=== PATIENT | female | born 1995 | race Caucasian/White ===

== ENCOUNTER 2024-11-22 13:03 | Outpatient (AMB) | payer OTHER, SELFPAY ==
--- NOTE | 2024-11-22 13:06 | MHC.PC.OV ---
Vital Signs 11/22/24 13:07 Height 5 ft 4 in Weight 158 lb 4 oz BMI 27.2 BP 100/66 Blood Pressure Location Lt brachial Position Sitting Pulse 73 Pulse Source Pulse Oximeter Pulse Oximetry (%) 99 Oxygen Delivery Method Room Air Intake Visit Reasons: establish care Customer Experience Specialist Required: No Accompanied by: Self / Same As Patient Allergies No Known Allergies Allergy (Verified 11/22/24 13:23) Medication List - Last Reconciled 11/22/24 by Dave Anaya PA-C No Known Home Meds Tobacco use date assessed: 11/22/24 Dental Screening Dental Screen Date: 11/22/24 Did you have a dental visit in the last 12 months?: Yes Did you have a dental problem in the last 6 months where you did not have access to dental care?: No Was dental information given to patient?: Patient has dentist HPI establish care HPI Details Patient is a 29-year-old female here today for an establish care visit. Patient has a past medical history significant for PCOS, iron-deficiency and recent history of intermittent right upper extremity pain and swelling Concern--> chronic right arm pain. This pain began approximately six to eight months ago, in April or May, and presents with radiating symptoms and bulging veins. After an evaluation at the emergency room earlier this year, the incident initially indicated a possible cerebrovascular accident; however, migraines were attributed to her control usage. An MRI of the head was performed, revealing no significant findings. Following a visit to urgent care, cervical strain was diagnosed, leading to steroid treatment that showed partial efficacy. Grades 1 Thru 6 Home Teacher: Sees Geovanna CHIRINOS, will like to transfer her care to [facility] teacher Vaccines: Up-to-date with flu vaccine, tetanus vaccine and COVID vaccines PFSH Family History (Updated 11/22/24 @ 13:24 by Dave Anaya PA-C) Father CVA (cerebral vascular accident) Other Diabetes Hypertension Social History (Updated 11/22/24 @ 13:24 by Dave Anaya PA-C) Housing: House Alcohol intake: current Alcohol intake frequency: holidays/special occasions only Patient Tobacco Use Status: Never used Tobacco e-Cigarette/Vaping Use: Never Used service: No Current occupational status: employed 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 1. Little interest or pleasure in doing things: not at all 2. Feeling down, depressed, or hopeless: not at all 3. Trouble falling or staying asleep, or sleeping too much: not at all 4. Feeling tired or having little energy: not at all 5. Poor appetite or overeating: not at all 6. Feeling bad about yourself - or that you are a failure or have let yourself or your family down: not at all 7. Trouble concentrating on things, such as reading the newspaper or watching television: not at all 8. Moving or speaking so slowly that other people could have noticed. Or the opposite - being so fidgety or restless that you have been moving around a lot more than usual: not at all 9. Thoughts that you would be better off or of hurting yourself in some way: not at all Total score: 0 Depression Screening Interpretation: Negative Depression Screening Done: Yes 58364 - PHQ-9 Billing: Yes Source: Developed by Drs. Damon Escobedo, Mindi Taylor, Bradley Trujillo and colleagues, with an educational cynthia from [employer]. Thrive Questionnaire Date Thrive assessed: 11/22/24 I am a: Patient What is your living situation today?: I have a steady place to live Within the past 12 months, did the food you bought not last and you didn't have the money to get more?: Never true Within the past 12 months, did you worry whether your food would run out before you got money to buy more?: Never true Do you have trouble paying for medicines?: No Do you have trouble getting transportation to medical appointments?: No Do you have trouble paying your heating and electricity bill?: No Do you have trouble taking care of your child, family member or friend?: No Do you have trouble with day-to-day activities such as bathing, preparing meals, shopping, managing finances, etc.?: No Are you currently unemployed and looking for a job?: No Are you interested in more education?: No Please select the resources that you would like help with: None Currently or been in a relationship where the following occur: No concerns reported THRIVE Score: 0 AUDIT C Alcohol Use Questionnaire (AUDIT-C) 1. How often do you have a drink containing alcohol?: 2-4 times a month 2. How many drinks containing alcohol do you have on a typical day when you are drinking?: 3 or 4 3. How often do you have six or more drinks on one occasion?: Never Total Score: 3 PIYUSH-7 AMB Questionnaire PIYUSH-7 Date PIYUSH - 7 assessed: 11/22/24 Feeling nervous, anxious, or on edge: 0 = Not at all Not being able to stop or control worryin = Not at all Worrying too much about different things: 0 = Not at all Trouble relaxin = Not at all Being so restless that it is hard to sit still: 0 = Not at all Becoming easily annoyed or irritable: 0 = Not at all Feeling afraid as if something awful might happen: 0 = Not at all Total PIYUSH-7 score (0-4 normal; 5-9 mild; 10-14 moderate; 15-21 severe): 0 Source: Developed by Drs. Damon Escobedo, Mindi Taylor, Bradley Trujillo and colleagues, with an educational cynthia from [employer]. PIYUSH-7 Assessment Billing PIYUSH-7 Assessment Tool: PIYUSH-7 Assessment 68962 Review of Systems Const Denies headache(s) Eyes Denies loss of vision ENT Denies vertigo, Denies dizziness, Denies headache(s) and Denies sore throat Card Denies chest pain, Denies leg edema and Denies lightheadedness Resp Denies cough, Denies hemoptysis and Denies wheezing GI Denies abdominal pain, Denies melena, Denies constipation, Denies diarrhea and Denies vomiting Denies urinary frequency, Denies dysuria and Denies urinary urgency Musc Denies arthralgias, Denies joint swelling, Denies numbness and Denies tingling Neuro Denies Abnormal speech present, Denies behavioral changes, Denies vertigo, Denies dizziness, Denies headache(s), Denies loss of vision, Denies memory loss, Denies numbness and Denies tingling Psych Denies anxiety, Denies behavioral changes, Denies depression, Denies memory loss and Denies panic attacks Calixto/Lymph Denies easy bleeding and Denies easy bruising Aller/Immun Denies wheezing Physical exam (Primary Care) Vital Signs: Last Vital Signs Pulse 73 11/22/24 13:07 BP 100/66 11/22/24 13:07 Pulse Ox 99 11/22/24 13:07 Oxygen Delivery Method Room Air 11/22/24 13:07 BMI result Body Mass Index 27.2 Tobacco/Smoking Status: Tobacco use Status Tobacco use date assessed 11/22/24 11/22/24 13:13 Patient Tobacco Use Status Never used Tobacco 11/22/24 13:13 e-Cigarette/Vaping Use Never Used 11/22/24 13:13 PHQ-9: PHQ-9 Score PHQ-9: Total score 0 11/22/24 13:13 Depression Screening Interpretation: Negative Thrive Assessment: Date of Thrive Assessment Date Thrive assessed 11/22/24 11/22/24 13:13 Currently or been in a relationship where the following occur: No concerns reported Const General: healthy appearing, no acute distress, alert and awake Nutritional Appearance: well nourished Orientation/consciousness: oriented to person, oriented to place and oriented to time HENMT Ears: TM's normal bilaterally General nose exam: Normal nasal mucous membranes and turbinates present Eyes Conjunctivae: conjunctivae normal Sclerae: sclerae normal Pupils: Equal, round and reactive pupils present Neck Neck: Yes no lymphadenopathy and Yes no JVD Thyroid: Thyroid normal Carotids: no bruits Resp Effort & Inspection: normal respiratory effort and not tachypneic Auscultation: no crackles, no rales, no rhonchi and no wheezes Cardio Rate: regular rate Rhythm: regular rhythm Heart sounds: no murmurs and normal S1 and S2 GI Palpation (GI): Soft to palpation, nontender, no hepatomegaly and no splenomegaly Auscultation: normal bowel sounds Skin General skin exam: no rashes or lesions noted and dry skin Neuro General: oriented to person, oriented to place and oriented to time Cranial nerves: Yes Equal, round and reactive pupils present Speech: No Abnormal speech present Gait exam (Neuro): Normal gait present Motor exam (neuro): no tremor noted Extrem Right upper extremity: full ROM Left upper extremity: full ROM Right lower extremity: full ROM; no edema Left lower extremity: full ROM; no edema Psych Mental Status: mental status grossly normal Speech and movement: Normal speech and movement present Affect: normal affect Attitude: cooperative Thought process: Normal thought process present Coding Level of Care Code New Pt Level 4 (32809) Diagnoses Cervical radiculopathy M54.12 Screening for diabetes mellitus (DM) Z13.1 Iron deficiency E61.1 PCOS (polycystic ovarian syndrome) E28.2 Swelling of right upper extremity M79.89 Paresthesia of right upper extremity R20.2 Additional Codes PHQ-9 - 59454 - PHQ-9 Billing: Yes ([id number]) PIYUSH-7 Assessment Billing - PIYUSH-7 Assessment Tool: PIYUSH-7 Assessment 24511 ([id number]) Assessment & Plan Assessment & Plan (1) Cervical radiculopathy: Code(s): M54.12 - Radiculopathy, cervical region Category: Medical Plan: A thorough evaluation has suggested a cervical disc etiology or local nerve involvement. Physical therapy is advised to alleviate the issue. Invasive tests like EMG are considered if no improvement is noted. (2) Screening for diabetes mellitus (DM): Code(s): Z13.1 - Encounter for screening for diabetes mellitus Category: Medical Plan: As per HPI (3) Iron deficiency: Code(s): E61.1 - Iron deficiency Category: Medical Plan: Patient has a history of iron deficiency, will check her iron studies and CBC. (4) PCOS (polycystic ovarian syndrome): Code(s): E28.2 - Polycystic ovarian syndrome Category: Medical Plan: Was followed by Geovanna CHIRINOS, will like to transfer her care to [facility] teacher for continued vocational rehabilitation teacher follow up (5) Swelling of right upper extremity: Code(s): M79.89 - Other specified soft tissue disorders Category: Medical Plan: As above patient does report venous dilation and arm pain on an intermittent basis. Will send for ultrasound to evaluate for a vascular issue in the right upper extremity (6) Paresthesia of right upper extremity: Code(s): R20.2 - Paresthesia of skin Category: Medical Plan: As above Orders: Orders IRON PROFILE Today D50.9 - Iron deficiency anemia, unspecified, E61.1 - Iron deficiency Complete Blood Count no Diff Today E61.1 - Iron deficiency Comprehensive [place]. Panel Fast Today Z13.1 - Encounter for screening for diabetes mellitus US arterial duplex UE RT Today M79.89 - Other specified soft tissue disorders NE electromyogram (EMG) Today R20.2 - Paresthesia of skin NE nerve conduction velocity Today R20.2 - Paresthesia of skin PT Evaluation and Treatment Today M54.12 - Radiculopathy, cervical region Referrals ELECTRIC MOTOR CONTROL ASSEMBLER Referral E28.2 - Polycystic ovarian syndrome
[2024-11-22 13:07] VITALS: BP 100/66; PULSE 73; O2SAT 99; BMI 27.2
--- OUTSIDE RECORDS SUMMARY | 2024-11-22 15:35 | XMS_ITS | Clinical Summary ---
Author Organization [facility] Address [address] [place] [address] Phone Care Team Providers Care Press Feeder Broomcorn Name Role Phone Emma Saini MD Primary Care Provider Unavailabl e Immunizations Immunization Administration Dates Next Due DTP 01/15/1995,1994,1994 DTaP 5 11/09/1999,02/23/1999 HPV, Quadrivalent 05/12/2008,01/08/2008,01/06/20 07 Hep B, ped/adol 1994,1994,1994 Hib (PRP-T) 02/23/1999 IPV 12/10/1997, 8,05/22/1996, 995,01/15/1995,1994,1994 Influenza Split 04/01/2012 MMR 07/18/2010,06/26/1999,04/13/1995 Meningococcal Conj (Menactra) MCV4P 01/08/2008 Tdap 01/05/2007 Family History Relation Name Status Comments Father Alive Father: Alive a nd well Maternal Grandmother Materna l grandmother: Asthma Mother Mother: Migrain es, Asthma Social History Tobacco Use Types Packs/Day Years Used Date Smoking Tobacco: Never Comments:Never smoker Comments Unknown Sex and Gender Information Value Date Recorded Sex Assigned at Not on file Legal Sex Female 4:54 PM EDT Gender Identity Not on file Sexual Orientation Not on file Last Filed Vital Signs Vital Sign Reading Time Taken Comments Blood Pressure 112/75 06/10/2014 12:00 AM EST Pulse 92 06/10/2014 12:00 AM EST Temperature 36.5 ??C (97.7 ??F) 06/10/2014 12:[address] Respiratory Rate - - Oxygen Saturation - - Inhaled Oxygen Concentration - - Weight 93.2 kg (205 lb 6.4 oz) 06/10/2014 12:00 AM EST Height 161.5 cm (5' 3.6 ) 06/10/2014 12:00 AM ES T Body Mass Index 35.7 06/10/2014 12:00 AM EST Plan of Treatment Health Maintenance Due Date Last Done Comments Hepatitis B Vaccines (4 of 4 - 4-dose series) 01/09/1995 1994, 1994, 1994 Varicella Vaccines (1 of 2 - 13+ 2-dose series) 09/04/2016 Influenza Vaccines (#1) 2024 04/23/20 19, 04/23/2017, 07/18/2016, Additional history exists COVID-19 Vaccine ( season) 2024 04/26/2021, 09/24/2020, 09/03/2020 DTaP,Tdap,and Td Vaccines (9 - Td or Tdap) 04/23/2027 04/23/2017, 07/18/2016, 01/05/2007, Additional history exists IPV Vaccines Completed 12/10/1997, 0 10/1997, 05/22/1996, Additional history exists HIB Vaccines Completed 02/23/1999 HPV Vaccines Completed 05/12/2008, 12/26, 01/05/2007 MMR Vaccines Completed 08/07/2016, 06/28, 06/26/1999, Additional history exists Meningococcal Vaccine Aged Out 02/03/2019, 008 No longer eligible based on patient's age to complete this topic Hepatitis A Vaccines Aged Out No long er eligible based on patient's age to complete this topic Men B Vaccine Aged Out No longer elig ible based on patient's age to complete this topic Pneumococcal Vaccine Aged Out No long er eligible based on patient's age to complete this topic Procedures * Due to [place] law, this organization might not be sharing sensitive test results. Procedure Name Priority Date/Time Associated Diagnosis Comments CHLAMYDIA AND GONORRHEA, AMPLIFIED Routine 11/09/2012 1:10 PM EDT from Last 3 Months or Most Recently Relevant to Health Maintenance Results * Due to [place] law, this organization might not be sharing sensitive test results. * Chlamydia and Gonorrhoea, Amplified (11/09/2012 1:10 PM EDT) URINE GC AMP PROBE NEGATIVE [facility] Comment: NO NEISSERIA GONORRHOEAE RNA DETECTED IN THIS PATIENT'S SAMPLE. ? (REFERENCE RANGE/NORMAL VALUE: NOT DETECTED) ? NOTE: THIS TEST USES FORMSTONE FITTER-MEDIATED AMPLIFICATION METHOD TO DETECT rRNA FROM C.TRACHOMATIS AND N.GONORRHOEAE. A NEGATIVE RESULT DOES NOT PRECLUDE INFECTION. THE APTIMA COMBO 2 ASSAY IS NOT INTENDED FOR THE EVALUATION OF SUSPECTED SEXUAL ABUSE OR FOR OTHER MEDICO LEGAL INDICATIONS. THERAPEUTIC FAILURE OR SUCCESS CANNOT BE DETERMINED WITH THE APTIMA COMBO 2 ASSAY SINCE NUCLEIC ACID MAY PERSIST FOLLOWING APPROPRIATE ANTIMICROBIAL THERAPY. IN THE CASE OF A NEGATIVE URINE RESULT, TESTING OF AN ENDOCERVICAL (FEMALE) OR URETHRAL (MALE) SPECIMEN IS RECOMMENDED IF THERE IS HIGH CLINICAL SUSPICION OF INFECTION. URINE CHLAMYDIA AMP PROBE NEGATIVE [facility] Comment: NO CHLAMYDIA TRACHOMATIS RNA DETECTED IN THIS PATIENT'S SAMPLE. ? (REFERENCE RANGE/NORMAL VALUE: NOT DETECTED) 11/09/2012 1:10 PM EDT Narrative [facility] - 11/09/2012 1:10 PM EDT URINE CHLAMYDIA GC AMP PROBE us Chelo Carranza MD LAB MICROBIOLOGY - GENERAL ORDER ANDERSON Final Result [facility] [address] [id number], [place] from Last 3 Months or Most Recently Relevant to Health Maintenance Care Teams Press Feeder Broomcorn Relationship Specialty Start Date End Date Emma Saini MD PCP - General 03/07/17
--- OUTSIDE RECORDS SUMMARY | 2024-11-22 15:35 | XMS_ITS | Encounter Summary ---
Author Organization [facility] Address [address] [place] [address] Phone Care Team Providers Care Chemical Production Machine Operator Name Role Phone Emma Saiin MD Primary Care Provider Unavailabl e Encounter Details Date Type Department Care Team (Late st Contact Info) Description 12/06/2009 Documentation [facility] [place] [facility] [address] [place] [address] Family Medicine, Physician [facility] [address] [place], [place] [id number] Social History Tobacco Use Types Packs/Day Years Used Date Smoking Tobacco: Never Assessed Comments Unknown Sex and Gender Information Value Date Recorded Sex Assigned at Not on file Legal Sex Female 4:54 PM EDT Gender Identity Not on file Sexual Orientation Not on file documented as of this encounter Plan of Treatment Not on file documented as of this encounter Visit Diagnoses Not on filedocumented in this encounter Care Teams Chemical Production Machine Operator Relationship Specialty Start Date End Date Emma Saini MD PCP - General 03/07/17 documented as of this encounter
--- OUTSIDE RECORDS SUMMARY | 2024-11-22 15:35 | XMS_ITS | Clinical Summary ---
Author Organization [address] Address [address] [place] [phone] Phone Care Team Providers Care Manager Transfer Name Role Phone Jacklyn Momin MD Primary Care Prov ider Allergies No known active allergies Medications norethindrone-e .estradioL-iron (LO LOESTRIN) 1 mg-10 mcg (24)/10 mcg (2) per tablet Take 1 tablet by mouth 1 (one) time each day. 84 tablet 5 09/02/19 26 Active mometasone (ELOCON) 0.1 % cream Apply 0.5 FTU nightly for 2 weeks to the affected area. May use twice a week thereafter 45 g 5 Active Active Problems Problem Noted Date Diagnosed Date Class 2 obesity due to exces s calories with body mass index (BMI) of 35.0 to 35.9 in adult 05/12/2024 Lichen simplex chronicus 03/29/2022 Overview (05/12/2024): Last Assessment & Plan: Exam findings consistent with lichen simplex chronicus reviewed with the patient. Wet prep positive for yeast. Vaginal culture collected for yeast speciation. Rx Diflucan x2 doses prescribed. She was also given Mycolog, instructed on use twice daily x4 weeks. Patient to return for further evaluation of symptoms not resolve following treatment. Vaginal yeast infection 03/29/2022 Overview (05/12/2024): Last Assessment & Plan: See lichen simplex chronicus Eating disorder, unspecified 01/07/2022 Overview (05/12/2024): Lissett Verma PhD Brantley grade A esophagitis 08/28/2021 Abnormal uterine bleeding 12/09/2020 PCOS (polycystic ovarian syndrome) 11/17/2020 Overview (05/12/2024): Last Assessment & Plan: She was counseled re: implications of PCOS including irregular ovulation which can lead to endometrial hyperplasia or malignancy, and also subfertility or infertility. I also reviewed terminal makeup operator risks of cardiovascular disease and diabetes. I recommended weight loss to help with resumption of regular menses, but in the meantime, reviewed hormonal options for menstrual regulation/endometrial protection. She was most interested in a combined OCP. She has no contraindications. She was counseled on correct use and what to do if she misses a pill. She was encouraged to continue to use condoms to prevent STI. She was counseled re: most commonly expected SE including BTB when starting, breast tenderness, and headache. She was counseled re: risk of VTE and encouraged to call with signs or sx. Her history was reviewed and she has no contraindications to estrogen use. She will return for follow up in 3 months. Vitamin D deficiency 08/07/2020 Pseudotumor cerebri 08/17/2019 Overview (05/12/2024): Dx 2018, lumbar puncture summer 2018. Symptoms started 2017, saw eye doctor and advised nothing . Symptoms were vision blank for a few seconds , dx in ER, no brain imaging though. PCP had dx vertigo. 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 Head CT then obtained, extra fluid in ventricles. Then saw neuro, rec lumbar puncture, opening pressure 24.5. [place] better for awhile after lumbar puncture. Started on diamox even prior to lumbar puncture, on med since head CT summer 2018. Being followed by neurology in [place] yearly and [facility] in [place] yearly - all normal with decreased eye pressure Anemia 2017 Overview (05/12/2024): Errous fumarate BID CBC monthly Counseling on iron rich food Immunizations Name Administration Dates Next Due Influenza Quadravalent, MDCK , 0.5ml, preservative free (Flucelvax) 6mo and older 04/23/2017 Influenza trivalent, 0.5mL, preservative free (Fluarix; FluLaval; Fluzone) ages 6mo and older (Afluria) 3 years and older 04/23/2019,07/18/2016 Influenza, Unspecified 04/17/2021 MMR, measles mumps and rubel la Live (Priorix; M-M-R II) 12mo and older 08/07/2016 Meningococcal MCV4P 02/03/2019 Pfizer SARS-CoV-2 COVID-19, mRNA, LNP-S, preservative free 04/26/2021 Tdap Tetanus diptheria acell ular pertussis (Boostrix; Adacel) 7yo and older 04/23/2017,07/18/2016 Surgical History Surgery Date Site/Laterality Comments HAND SURGERY 2011 Left PROCEDURE: HISTORICAL HAND SURGERY; COMMENT: [facility] TUBAL LIGATION 2017 PROCEDURE: HISTORICAL TUBAL LIGATION BARIATRIC SURGERY 04/19/2022 PROCEDURE: RI LAPS GSTRC RSTRICTIV PX LONGITUDINAL GASTRECTOMY Medical History Medical History Date Comments Anemia 2017 DX:Anemia Pseudotumor cerebri DX:Pseudotum or cerebri; COMMENT: dx 2018. Eating disorder, unspecified 01/07/2022 DX: Eating disorder, unspecified; COMMENT: Lissett Verma PhD Abnormal uterine bleeding 12/09/2020 DX:Abn ormal uterine bleeding Brantley grade A esophagitis 08/28/2021 DX:Brantley grade A esophagitis PCOS (polycystic ovarian syndrome) 11/17/2020 DX:PCOS (polycystic ovarian syndrome) Vitamin D deficiency 08/07/2020 DX:Vitamin D deficiency Morbid obesity with BMI of 4 0.0-44.9, adult ([facility] V24, [facility] V28) 08/18/2019 DX:Morbid obesity wit h BMI of 40.0-44.9, adult ([facility]) History of sleeve gastrectomy 04/22/2022 DX :History of sleeve gastrectomy; COMMENT: 04/19/2022 Family History Medical History Relation Name Comments No Known Problems Brother 1 No Known Problems Brother 2 No Known Problems Daughter No Known Problems Father Asthma Mother Hypertension Paternal Grandmother No Known Problems Sister 1 No Known Problems Sister 2 No Known Problems Son 1 No Known Problems Son 2 Breast cancer Neg Hx Colon cancer Neg Hx Ovarian cancer Neg Hx Relation Name Status Comments Brother 1 Alive Brother 2 Alive Daughter Alive Father Alive Mother Alive Paternal Grandmother Alive Sister 1 Alive Sister 2 Alive Son 1 Alive Son 2 Alive Social History Tobacco Use Types Packs/Day Years Used Date Smoking Tobacco: Never Smokeless Tobacco: Never Alcohol Use Standard Drinks/Week Comments Yes 0 (1 standard drink = 0.6 oz pur e alcohol) Comments Unknown Sex and Gender Information Value Date Recorded Sex Assigned at Not on file Legal Sex Female 12:02 PM EST Gender Identity Not on file Sexual Orientation Not on file Obstetrics History Last Filed Vital Signs Vital Sign Reading Time Taken Comments Blood Pressure 111/74 01/20/2024 8:36 AM EDT Pulse 79 01/20/2024 8:36 AM EDT Temperature - - Respiratory Rate - - Oxygen Saturation - - Inhaled Oxygen Concentration - - Weight 68 kg (150 lb) 01/20/2024 8:36 AM EDT Height 162.6 cm (5' 4 ) 01/20/2024 8:36 AM EDT Body Mass Index 25.75 01/20/2024 8:36 AM EDT Plan of Treatment Upcoming Encounters Date Type Department Care Team (Late st Contact Info) Description 02/28/2025 2:00 PM EDT Office Visit Adult Medicine [address] [phone] Jacklyn Momin MD [address] [place] [id number] Health Maintenance Due Date Last Done Comments Hepatitis B Vaccines (1 of 3 - 19+ 3-dose series) 2013 Depression Screening 07/06/2022 Social Influencers of Health Screening 07/06/2022 COVID-19 Vaccine ( season) 2024 04/26/2021, 09/24/2020, 09/03/2020 Influenza Vaccine (Season Ended) 2025 04/17/2021, 04/23/2019, 04/23/2017, Additional history exists Cholesterol Screening (Lipid Panel) 08/05/2025 08/05/2020 Cervical Cancer Screening: HPV 10/23/2026 10/23/2021 DTaP,Tdap,and Td Vaccines (3 - Td or Tdap) 04/23/2027 04/23/2017, 07/18/2016 MMR Vaccines Aged Out 08/07/2016 No longer eligi ble based on patient's age to complete this topic HIV Screening Completed 12/16/2016 Hepatitis C Screening Completed 12/16/2016 Meningococcal ACWY Vaccine Aged Out 02/03/2019 N o longer eligible based on patient's age to complete this topic HIB Vaccines Aged Out No longer eligi ble based on patient's age to complete this topic HPV Vaccines Aged Out No longer eligi ble based on patient's age to complete this topic Hepatitis A Vaccines Aged Out No long er eligible based on patient's age to complete this topic IPV Vaccines Aged Out No longer eligi ble based on patient's age to complete this topic Meningococcal B Vaccine Aged Out No l onger eligible based on patient's age to complete this topic Pneumococcal Vaccine: Pediatrics (0 to 5 Years) and At-Risk Patients (6 to 64 Years) Aged Out No longer eligible based on patient's age to complete this topic RSV Immunization Patients Under 20 months Aged Out No longer eligible based on patient's age to complete this topic Varicella Vaccines Aged Out No longer eligible based on patient's age to complete this topic Procedures Procedure Name Priority Date/Time Associated Diagnosis Comments HPV Routine 10/23/2021 LIPID PANEL Routine 08/05/2020 HEPATITIS C SCREENING Routine 12/16/2016 HIV SCREENING Routine 12/16/2016 from Last 3 Months or Most Recently Relevant to Health Maintenance Results * Cervical Cancer Screening: HPV (10/23/2021) Cervical Cancer Screening: HPV negative, abstracted us Historical Provider HEALTH MAINTENANCE Final Result * Lipid panel (08/05/2020) LDL/HDL Ratio 4 0 - 4 Triglycerides 95 0 - 150 mg/dL Cholesterol 166 0 - 200 mg/dL HDL 44 >=40 mg/dL LDL Cholesterol 103 0 - 103 mg/dL Blood Venous blood specimen / Unknown Historical Provider LAB BLOOD ORDERABLES Jessica l Result * HIV Screening (12/16/2016) HIV Screening abstracted Historical Provider HEALTH MAINTENANCE Final Result * Hepatitis C Screening (12/16/2016) Hepatitis C Screening abstracted Historical Provider HEALTH MAINTENANCE Final Result from Last 3 Months or Most Recently Relevant to Health Maintenance Insurance [facility] Care Teams Manager Transfer Relationship Specialty Start Date End Date Jacklyn Momin MD [address] [place] [address] PCP - General Internal Medicine 03/29/22
--- OUTSIDE RECORDS SUMMARY | 2024-11-22 15:35 | XMS_ITS | Encounter Summary ---
Author Organization [facility] Address [address] [place] [address] Phone Care Team Providers Care Piping Manager Name Role Phone Emma Saini MD Primary Care Provider Unavailabl e Encounter Details Date Type Department Care Team (Late st Contact Info) Description 12/06/2009 Documentation [facility] [facility] [address] [place] [address] Family Medicine, Physician [facility] [address] [place], [place] [id number] Social History Tobacco Use Types Packs/Day Years [...] on filedocumented in this encounter Care Teams Piping Manager Relationship Specialty Start Date End Date Emma Saini MD PCP - General 03/07/17 documented as of this encounter
--- OUTSIDE RECORDS SUMMARY | 2024-11-22 15:35 | XMS_ITS | Encounter Summary ---
Author Organization [facility] Address [address] [place] [address] Phone Care Team Providers Care Board Design Engineer Name Role Phone Emma Saini MD Primary Care Provider Unavailabl e Encounter Details Date Type Department Care Team (Late st Contact Info) Description 03/13/2017 Conversion Encounter [facility] - [address] [address] Social History Tobacco Use Types Packs/Day Years [...] on filedocumented in this encounter Care Teams Board Design Engineer Relationship Specialty Start Date End Date Emma Saini MD PCP - General 03/07/17 documented as of this encounter
== END 2024-11-22 13:42 | disposition home or self-care (01) ==
LOC: HO.HMCH 13:03
PROVIDERS: PCP Physician Assistant; Visit Provider Physician Assistant
DX: M54.12 Radiculopathy, cervical region (principal); Z13.1 Encounter for screening for diabetes mellitus; E61.1 Iron deficiency; E28.2 Polycystic ovarian syndrome; M79.89 Other specified soft tissue disorders; R20.2 Paresthesia of skin

== ENCOUNTER → 2024-11-22 13:03 | Outpatient (BNVA) | payer OTHER, SELFPAY | PROVIDERS: PCP Physician Assistant; Visit Provider Physician Assistant | DX: M54.12 Radiculopathy, cervical region (principal); E61.1 Iron deficiency; E28.2 Polycystic ovarian syndrome; M79.89 Other specified soft tissue disorders; R20.2 Paresthesia of skin | CPT/HCPCS: 96127 ==

== ENCOUNTER 2025-01-13 14:48 | Outpatient (REF) | payer BC, SELFPAY ==
--- NOTE | ~2025-01-13 | US_ITS ---
EXAMINATION: US DOPPLER UPPER EXTREMITY ARTERIAL , RIGHT UPPER EXTREMITY CLINICAL INFORMATION: Intermittent pain and swelling, right upper extremity. COMPARISON: None available. TECHNIQUE: Spectral color arterial Doppler ultrasound, right upper extremity. FINDINGS: Interrogated arteries included right subclavian artery, axillary artery, brachial artery, radial and ulnar arteries. There is normal patency throughout the interrogated arteries. There is no gross plaques. Right subclavian artery: Peak systolic velocity: 120 cm/s. Normal triphasic waveform. Right axillary artery:Peak systolic velocity: 67 cm/s. Normal triphasic waveform. Right brachial artery: Peak systolic velocity: 99- 108 cm/s. Normal triphasic waveform. Right radial artery: Peak systolic velocity: 76 cm/s. Normal triphasic waveform. Right ulnar artery: Peak systolic velocity: 42 cm/s. Biphasic waveform. US/US arterial duplex UE RT IMPRESSION: Mild inflow disease, right ulnar artery. Normal patency of the interrogated arteries. No gross plaque. Electronically signed by: Nico Wilder MD 01/13/2025 03:35 PM EDT
--- OUTSIDE RECORDS SUMMARY | 2025-01-13 16:06 | XMS_ITS | Encounter Summary ---
Author Organization [facility] Address [address] [place] [address] Phone Care Team Providers Care Land Measurer Name Role Phone Emma Saini MD Primary Care Provider Unavailabl e Encounter Details Date Type Department Care Team (Late st Contact Info) Description 12/06/2009 [place] [facility] [place] [address] [place] [address] Family Medicine, Physician [facility] [address] [place], [place] [id number] Social History Tobacco Use Types Packs/Day Years [...] on filedocumented in this encounter Care Teams Land Measurer Relationship Specialty Start Date End Date Emma Saini MD PCP - General 03/07/17 documented as of this encounter
== END 2025-01-13 14:49 | disposition home or self-care (01) ==
LOC: HO.US 14:48
PROVIDERS: PCP Physician Assistant; Visit Provider Physician Assistant
DX: R20.2 Paresthesia of skin (principal); M79.601 Pain in right arm; R60.0 Localized edema
CPT/HCPCS: 93931

== ENCOUNTER → 2025-01-13 14:50 | Outpatient (BNV) | payer BC, SELFPAY | PROVIDERS: PCP Physician Assistant; Visit Provider Radiology Diagnostic Radiology | DX: R22.31 Localized swelling, mass and lump, right upper limb (principal) | CPT/HCPCS: 93931 ==

== ENCOUNTER 2025-04-05 14:23 | Outpatient (AMB) | payer BC, SELFPAY ==
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
--- OUTSIDE RECORDS SUMMARY | 2025-04-05 16:57 | XMS_ITS | Encounter Summary ---
Author Organization [facility] Address [address] [place] [phone] Phone Care Team Providers Care Assistant Shift Supervisor Name Role Phone Ashok Brumfield MD Primary Care Provider Encounter Details Date Type Department Care Team ([facility] st Contact Info) Description 10/05/2019 Procedure Pass [facility] [address] [place] [address] Social History Tobacco Use Types Packs/Day Years Used Date Smoking Tobacco: Never Smokeless Tobacco: Never Alcohol Use Standard Drinks/Week Comments Yes 0 (1 standard drink = 0.6 oz pur e alcohol) 1 drink a month Comments Unknown Sex and Gender Information Value Date Recorded Sex Assigned at Not on file Legal Sex Female 3:42 PM EST Gender Identity Not on file Sexual Orientation Not on file documented as of this encounter Plan of Treatment Not on file documented as of this encounter Visit Diagnoses Not on filedocumented in this encounter Care Teams Assistant Shift Supervisor Relationship Specialty Start Date End Date Ashok Brumfield MD PCP - General 09/28/19 documented as of this encounter Additional Source Comments The information contained in this document represents components of the legal health record. It is not the complete legal health record.[facility]
--- OUTSIDE RECORDS SUMMARY | 2025-04-05 16:57 | XMS_ITS | Clinical Summary ---
Author Organization [facility] Address [address] [place] [address] Phone Care Team Providers Care Wood Repatcher Name Role Phone Ashok Brumfield MD Primary Care Provider Allergies No known active allergies Medications acetaZOLAMIDE (DIAMOX) 250 MG tablet Take 250 mg by mouth 2 (two) times a day. Active Social History Tobacco Use Types Packs/Day Years Used Date Smoking Tobacco: Never Smokeless Tobacco: Never Alcohol Use Standard Drinks/Week Comments Yes 0 (1 standard drink = 0.6 oz pur e alcohol) 1 drink a month Education Answer Date Recorded Are you interested in more education? Not on letitia e 11/22/2022 Are you concerned about learning? Not on file 11/22/2022 No 11/22/2022 No 11/22/2022 Digital Access Answer Date Recorded No 12/21/2022 No 12/21/2022 No 12/21/2022 Reliable internet access at home? Not on file 12/21/2022 Device with a working camera? Not on file Comments Unknown Sex and Gender Information Value Date Recorded Sex Assigned at Not on file Legal Sex Female 3:42 PM EST Gender Identity Not on file Sexual Orientation Not on file Last Filed Vital Signs Vital Sign Reading Time Taken Comments Blood Pressure 119/69 10/05/2019 10:15 AM EDT Pulse 74 10/05/2019 7:30 AM EDT Temperature 37.1 C (98.8 F) 10/05/2019 9:45 AM EDT Respiratory Rate 16 10/05/2019 7:30 AM EDT Oxygen Saturation 100% 10/05/2019 10:15 AM EDT Inhaled Oxygen Concentration - - Weight 104.3 kg (230 lb) 10/01/2019 12:50 PM EST Height 165.1 cm (5' 5 ) 10/01/2019 12:50 PM EST Body Mass Index 38.27 10/01/2019 12:50 PM EST Plan of Treatment Health Maintenance Due Date Last Done Comments DEPRESSION SCREENING 2006 HEPATITIS C SCREENING 2012 HIV ONE-TIME SCREENING (18-65 YEARS) 2012 PAP SMEAR 2015 INFLUENZA VACCINE (#1) 2025 9, 04/23/2017, 07/18/2016, Additional history exists COVID-19 VACCINE ( season) 2025 09/24/2020, 09/03/2020 Adult Td,Tdap Booster 04/23/2027 04/23/2017 , 07/18/2016, 01/05/2007 HIB VACCINES Completed 02/23/1999 MENINGOCOCCAL VACCINES (ACWY) Aged Out 02/03/2019, 01/08/2008 No longer eligibl e based on patient's age to complete this topic SMOKING STATUS SCREENING (Once After 26 Yrs) Completed 10/05/2019 HEPATITIS A VACCINES Aged Out No long er eligible based on patient's age to complete this topic MENINGOCOCCAL VACCINES (B) Aged Out N o longer eligible based on patient's age to complete this topic PNEUMOCOCCAL VACCINES (0-49 years) Aged Out No longer eligible based on patient's age to complete this topic Medical Devices Not on file Insurance [facility] NON NSPG PCP [facility] [address] [facility] [place] NON NSPG PCP S[facility] [employer] CONNECTORC[facility] WELLSENSE NON NSPG PCP SILVER [employer] CONNECTORCARE WELLSENSE NON NSPG PCP SILVER CLARITY CONNECTORCARE WELLSENSE NON NSPG PCP SILVER CLARITY CONNECTORCARE [place] NON NSPG PCP SILVER CLARITY CONNECTORCARE WELLSENSE NON NSPG PCP SILVER [employer]ITY CONNECTORCARE [place] NON NSPG PCP S[facility] [employer] CONNECTORCARE Care Teams Wood Repatcher Relationship Specialty Start Date End Date Ashok Brumfield MD PCP - General 09/28/19 Additional Source Comments The information contained in this document represents components of the legal health record. It is not the complete legal health record.[facility]
--- OUTSIDE RECORDS SUMMARY | 2025-04-05 16:57 | XMS_ITS | Clinical Summary ---
Author Organization [address] Address [address] [place] [phone] Phone Care Team Providers Care Hospital Pharmacist Name Role Phone Jacklyn Momin MD Primary Care Prov ider Allergies No known active allergies Medications norethindrone-e .estradioL-iron (LO LOESTRIN) 1 mg-10 mcg (24)/10 mcg (2) per tablet Take 1 tablet by mouth 1 (one) time each day. 84 tablet 5 09/02/19 26 Active mometasone (ELOCON) 0.1 % cream APPLY 0.5 FTU NIGHTLY FOR 2 WEEKS TO THE AFFECTED AREA. MAY USE TWICE A WEEK THEREAFTER 45 g 5 Active Active Problems Problem [...] unspecified 01/07/2022 Overview (05/12/2024): Lissett Verma PhD [place] grade A esophagitis 08/28/2021 Abnormal uterine bleeding 12/09/2020 PCOS (polycystic ovarian syndrome) 11/17/2020 Overview (05/12/2024): Last Assessment & Plan: She was counseled re: implications of PCOS including irregular ovulation which can lead to endometrial hyperplasia or malignancy, and also subfertility or infertility. I also reviewed shredded filler hopper feeder risks of cardiovascular disease and diabetes. I [...] saw swelling of optic nerve, rec see client technologies specialist, optic nerve swelling. Head CT then obtained, extra fluid in ventricles. Then saw neuro, rec lumbar puncture, opening pressure 24.5. [place] better for awhile after lumbar puncture. Started on diamox even prior to lumbar puncture, on med since head CT summer 2018. Being followed by neurology in [place] yearly and Eye and Lasik in [place] yearly - all normal with decreased eye [...] 2011 Left PROCEDURE: HISTORICAL HAND SURGERY; COMMENT: [facility] TUBAL LIGATION 2017 PROCEDURE: HISTORICAL TUBAL LIGATION BARIATRIC SURGERY 04/19/2022 PROCEDURE: [place] LAPS GSTRC RSTRICTIV PX LONGITUDINAL GASTRECTOMY Medical History Medical History Date Comments Anemia 2017 DX:Anemia Pseudotumor cerebri DX:Pseudotum or cerebri; COMMENT: dx 2018. Eating disorder, unspecified 01/07/2022 DX: Eating disorder, unspecified; COMMENT: Lissett Verma PhD Abnormal uterine bleeding 12/09/2020 DX:Abn ormal uterine bleeding [place] grade A esophagitis 08/28/2021 DX:[place] grade A esophagitis PCOS (polycystic ovarian syndrome) 11/17/2020 DX:PCOS (polycystic ovarian syndrome) Vitamin D deficiency 08/07/2020 DX:Vitamin D deficiency Morbid obesity with BMI of 4 0.0-44.9, adult ([facility] V24, [facility] V28) 08/18/2019 DX:Morbid obesity wit h BMI of 40.0-44.9, adult ([facility]) History of sleeve gastrectomy 04/22/2022 DX :History [...] 01/20/2024 8:36 AM EDT Plan of Treatment Health Maintenance Due Date Last Done Comments Hepatitis B Vaccines (1 of 3 - 19+ 3-dose series) 2013 Social Influencers of Health Screening 07/06/2022 Depression Screening 07/28/2024 COVID-19 Vaccine ( season) 2025 04/26/2021, 09/24/2020, 09/03/2020 Influenza Vaccine (#1) 2025 , 04/23/2019, 04/23/2017, Additional history exists Cholesterol Screening [...] 5 Years) and At-Risk Patients (6 to 49 Years) Aged Out No longer eligible based [...] Results * Cervical Cancer Screening: HPV (10/23/2021) [facility] Cervical Cancer Screening: HPV negative, abstracted Historical Provider HEALTH MAINTENANCE Final Result * Lipid panel (08/05/2020) [facility] LDL/HDL Ratio 4 0 - 4 Triglycerides 95 0 - 150 mg/dL Cholesterol 166 0 - 200 mg/dL HDL 44 >=40 mg/dL LDL Cholesterol 103 0 - 103 mg/dL Blood Venous blood specimen / Unknown Historical Provider LAB BLOOD ORDERABLES Jessica l Result * HIV Screening (12/16/2016) [facility] HIV Screening abstracted Historical Provider HEALTH MAINTENANCE Final Result * Hepatitis C Screening (12/16/2016) Hepatitis C Screening abstracted us Historical Provider HEALTH MAINTENANCE Final Result from Last 3 Months or Most Recently Relevant to Health Maintenance Insurance [facility] Care Teams Hospital Pharmacist Relationship Specialty Start Date End Date Jacklyn Momin MD [address] [place] [phone] PCP - General Internal Medicine 03/29/22
== END 2025-04-05 15:01 | disposition home or self-care (01) ==
LOC: HO.HVS 14:24
PROVIDERS: PCP Physician Assistant; Visit Provider Surgery Vascular Surgery
DX: M54.12 Radiculopathy, cervical region (principal)
CPT/HCPCS: 99204

== ENCOUNTER 2025-04-22 06:23 | Outpatient (REF) | payer BC, SELFPAY ==
--- OUTSIDE RECORDS SUMMARY | 2025-04-22 06:26 | XMS_ITS | Encounter Summary ---
Author Organization [facility] Address [address] [place] [address] Phone Care Team Providers Care Signal Maintainer Name Role Phone Emma Saini MD Primary Care Provider Unavailabl e Encounter Details Date Type Department Care Team (Late st Contact Info) Description 12/06/2009 Documentation [facility] Family Medicine [address] [place] [address] Family Medicine, Physician [facility] [address] [place], [place] [id number] Social History Tobacco Use Types Packs/Day Years [...] on filedocumented in this encounter Care Teams Signal Maintainer Relationship Specialty Start Date End Date Emma Saini MD PCP - General 03/07/17 documented as of this encounter
--- OUTSIDE RECORDS SUMMARY | 2025-04-22 06:26 | XMS_ITS | Encounter Summary ---
Author Organization [facility] Address [address] [place] [address] Phone Care Team Providers Care Continuous Still Operator Name Role Phone Emma Saini MD Primary Care Provider Unavailabl e Encounter Details Date Type Department Care Team (Late st Contact Info) Description 03/13/2017 Conversion Encounter [facility] - [address] [id number] Social History Tobacco Use Types Packs/Day Years [...] on filedocumented in this encounter Care Teams Continuous Still Operator Relationship Specialty Start Date End Date Emma Saini MD PCP - General 03/07/17 documented as of this encounter
--- OUTSIDE RECORDS SUMMARY | 2025-04-22 06:26 | XMS_ITS | Clinical Summary ---
Author Organization [facility] Address [address] [facility] [address] [place] [address] Phone Care Team Providers Care Rehab Services Aide Name Role Phone Ashok Brumfield MD Primary [...] topic Medical Devices Not on file Insurance [facility] NON NSPG PCP JOSE [place] [facility]CARE [address] [facility] [place]LL[place] NON NSPG PCP SILVER CLARITY CONNECTORCARE [place] NON NSPG PCP SILVER CLARITY CONNECTORCARE [place] NON NSPG PCP SILVER CLARITY CONNECTORCARE [place] NON NSPG PCP SILVER CLARITY CONNECTORCARE [place] NON NSPG PCP SILVER CLARITY CONNECTORCARE [place] NON NSPG PCP SILVER CLARITY CONNECTORCARE [place] NON NSPG PCP SILVER CLARITY CONNECTORCARE Care Teams Rehab Services Aide Relationship Specialty Start Date End Date Ashok Brumfield MD PCP - General 09/28/19 Additional Source Comments The information contained in this document represents components of the legal health record. It is not the complete legal health record.[facility]
--- OUTSIDE RECORDS SUMMARY | 2025-04-22 06:26 | XMS_ITS | Clinical Summary ---
Author Organization [address] Address [address] [place] [phone] Phone Care Team Providers Care Psychiatric Clinician Name Role Phone Jacklyn Momin MD Primary [...] unspecified 01/07/2022 Overview (05/12/2024): Lissett Verma PhD [place] grade A esophagitis 08/28/2021 Abnormal uterine bleeding 12/09/2020 PCOS (polycystic ovarian syndrome) 11/17/2020 Overview (05/12/2024): Last Assessment & Plan: She was counseled re: implications of PCOS including irregular ovulation which can lead to endometrial hyperplasia or malignancy, and also subfertility or infertility. I also reviewed snf risks of cardiovascular disease and diabetes. I [...] saw swelling of optic nerve, rec see artificial plastic eye maker, optic nerve swelling. Head CT then obtained, extra fluid in ventricles. Then saw neuro, rec lumbar puncture, opening pressure 24.5. [place] better for awhile after lumbar puncture. Started on diamox even prior to lumbar puncture, on med since head CT summer 2018. Being followed by neurology in [place] yearly and Eye and Lasik in [place] yearly - all normal with decreased eye [...] 2011 Left PROCEDURE: HISTORICAL HAND SURGERY; COMMENT: [facility] TUBAL LIGATION 2017 PROCEDURE: HISTORICAL TUBAL LIGATION BARIATRIC SURGERY 04/19/2022 PROCEDURE: [place] LAPS GSTRC RSTRICTIV PX LONGITUDINAL GASTRECTOMY Medical History Medical History Date Comments Anemia 2017 DX:Anemia Pseudotumor cerebri DX:Pseudotum or cerebri; COMMENT: dx 2018. Eating disorder, unspecified 01/07/2022 DX: Eating disorder, unspecified; COMMENT: Lissett Verma PhD Abnormal uterine bleeding 12/09/2020 DX:Abn ormal uterine bleeding [place] grade A esophagitis 08/28/2021 DX:[place] grade A esophagitis PCOS (polycystic ovarian syndrome) 11/17/2020 DX:PCOS (polycystic ovarian syndrome) Vitamin D deficiency 08/07/2020 DX:Vitamin D deficiency Morbid obesity with BMI of 4 0.0-44.9, adult ([facility] V24, [facility] V28) 08/18/2019 DX:Morbid obesity wit h BMI of 40.0-44.9, adult ([facility]) History of sleeve gastrectomy 04/22/2022 DX [...] Results * Cervical Cancer Screening: HPV (10/23/2021) [facility] Cervical Cancer Screening: HPV negative, abstracted Historical Provider HEALTH MAINTENANCE Final Result * Lipid panel (08/05/2020) [facility] LDL/HDL Ratio 4 0 - 4 Triglycerides 95 0 - 150 mg/dL Cholesterol 166 0 - 200 mg/dL HDL 44 >=40 mg/dL LDL Cholesterol 103 0 - 103 mg/dL Blood Venous blood specimen / Unknown Historical Provider LAB BLOOD ORDERABLES Jessica l Result * HIV Screening (12/16/2016) [facility] HIV Screening abstracted Historical Provider HEALTH MAINTENANCE Final Result * Hepatitis C Screening (12/16/2016) Hepatitis C Screening abstracted us Historical Provider HEALTH MAINTENANCE Final Result from Last 3 Months or Most Recently Relevant to Health Maintenance Insurance [facility] Care Teams Psychiatric Clinician Relationship Specialty Start Date End Date Jacklyn Momin MD [address] [place] [phone] PCP - General Internal Medicine 03/29/22
--- OUTSIDE RECORDS SUMMARY | 2025-04-22 06:26 | XMS_ITS | Encounter Summary ---
Author Organization [facility] Address [address] [place] [address] Phone Care Team Providers Care Chief Librarian Music Department Name Role Phone Emma Saini MD Primary Care Provider Unavailabl e Encounter Details Date Type Department Care Team (Late st Contact Info) Description 12/06/2009 Documentation [facility] Family Medicine [address] [place] [address] Family Medicine, Physician [facility] [address] [place], [place] [phone] Social History Tobacco Use Types Packs/Day Years [...] on filedocumented in this encounter Care Teams Chief Librarian Music Department Relationship Specialty Start Date End Date Emma Saini MD PCP - General 03/07/17 documented as of this encounter
--- OUTSIDE RECORDS SUMMARY | 2025-04-22 06:26 | XMS_ITS | Encounter Summary ---
Author Organization [facility] Address [address] [facility] [address] [place] [phone] Phone Care Team Providers Care Neurology Technician Name Role Phone Ashok Brumfield MD Primary Care Provider Encounter Details Date Type Department Care Team ([facility] Contact Info) Description 10/05/2019 Procedure Pass [facility] [address] [place] [address] Social History Tobacco Use Types Packs/Day Years [...] on filedocumented in this encounter Care Teams Neurology Technician Relationship Specialty Start Date End Date Ashok Brumfield MD PCP - General 09/28/19 documented as of this encounter Additional Source Comments The information contained in this document represents components of the legal health record. It is not the complete legal health record.[facility]
--- OUTSIDE RECORDS SUMMARY | 2025-04-22 06:26 | XMS_ITS | Clinical Summary ---
Author Organization [facility] Address [address] [place] [address] Phone Care Team Providers Care Customs And Border Protection Officer Name Role Phone Emma Saini MD Primary [...] 92 06/10/2014 12:00 AM EST Temperature 36.5 C (97.7 F) 06/10/2014 12:00 AM EST Respiratory Rate - - Oxygen Saturation - [...] (1 of 2 - 13+ 2-dose series) 08/15/2010 Influenza Vaccines (#1) 2025 04/23/20 19, 04/23/2017, 07/18/2016, Additional history exists COVID-19 Vaccine ( - season) 2025 04/26/2021, 09/24/2020, 09/03/2020 DTaP,Tdap,and Td Vaccines (9 - Td or Tdap) 04/23/2027 04/23/2017, 07/18/2016, 01/05/2007, Additional history exists IPV Vaccines Completed 12/10/1997, 050 10/1997, 05/22/1996, Additional history exists HIB Vaccines [...] complete this topic Procedures * Due to [place] OOTU law, this organization might not be sharing sensitive test results. Procedure Name Priority Date/Time Associated Diagnosis Comments CHLAMYDIA AND GONORRHEA, AMPLIFIED Routine 11/09/2012 1:10 PM EDT from Last 3 Months or Most Recently Relevant to Health Maintenance Results * Due to [place] OOT[place] law, this organization might not be sharing sensitive test results. * Chlamydia and Gonorrhoea, Amplified (11/09/2012 1:10 PM EDT) URINE GC AMP PROBE NEGATIVE [facility] Comment: NO NEISSERIA GONORRHOEAE RNA DETECTED IN THIS PATIENT'S SAMPLE. (REFERENCE RANGE/NORMAL VALUE: NOT DETECTED) NOTE: THIS TEST USES NARRATIVE WRITER-MEDIATED AMPLIFICATION METHOD TO DETECT rRNA FROM C.TRACHOMATIS [...] OF INFECTION. URINE CHLAMYDIA AMP PROBE NEGATIVE [facility] Comment: NO CHLAMYDIA TRACHOMATIS RNA DETECTED IN THIS PATIENT'S SAMPLE. (REFERENCE RANGE/NORMAL VALUE: NOT DETECTED) 11/09/2012 1:10 PM EDT Narrative [facility] - 11/09/2012 1:10 PM EDT URINE CHLAMYDIA GC AMP PROBE us Chelo Carranza MD LAB MICROBIOLOGY - GENERAL ORDER ANDERSON Final Result [facility] [address] [place] [address], from Last 3 Months or Most Recently Relevant to Health Maintenance Care Teams Customs And Border Protection Officer Relationship Specialty Start Date End Date Emma Saini MD PCP - General 03/07/17
[2025-04-22 08:04] LABS: Hematocrit 27.3 % (37.0-47.0); Hemoglobin 7.8 g/dl (12.0-16.0); Mean Corpuscular HGB Conc 28.6 g/dl (31.0-35.0); Mean Corpuscular Hemoglobin 18.1 pg (27.0-33.0); NRBC Abs Auto 0.000 X10*3/uL (0.0-0.012); NRBC Pct Auto 0.0 /100WBC (0.0-0.2); Platelet Count 408 X10*3/uL (160-400); Red Blood Count 4.30 X10*6/uL (4.20-5.50); White Blood Count 4.1 X10*3/uL (4.8-10.8)
[2025-04-22 08:08] LABS: Mean Corpuscular Volume 63.5 fL (80.0-98.0)
[2025-04-22 08:18] LABS: Alanine Aminotransferase 24 U/L (0-31); Albumin Level 4.0 g/dL (3.5-5.0); Alkaline Phosphatase 76 U/L (39-117); Anion Gap 8 (12-20); Aspartate Amino Transferase 34 U/L (5-31); Blood Urea Nitrogen 10 mg/dL (9-16); Calcium 8.9 mg/dL (8.4-10.2); Carbon Dioxide 28 mmol/L (22-29); Chloride 111 mmol/L (96-108); Estimated Glomerular Filt Rate > 60; Iron 18 mcg/dL (30-160); Percent Iron Saturation 4 % (15-50); Potassium 4.1 mmol/L (3.3-5.1); Sodium 143 mmol/L (135-145); Total Iron Binding Capacity 447 mcg/dL (228-428); Total Protein 6.7 g/dL (6.5-8.0); Unsaturated Iron Binding 429 ug/dL
== END 2025-04-22 06:24 | disposition home or self-care (01) ==
LOC: HO.LAB 06:23
PROVIDERS: PCP Physician Assistant; Visit Provider Physician Assistant
DX: M54.12 Radiculopathy, cervical region (principal); M54.2 Cervicalgia; E61.1 Iron deficiency; R20.2 Paresthesia of skin; M25.511 Pain in right shoulder; Z13.1 Encounter for screening for diabetes mellitus
CPT/HCPCS: 36415; 80053; 83540; 85027

== ENCOUNTER 2025-04-22 15:03 | Outpatient (AMB) | payer BC, SELFPAY ==
--- NOTE | 2025-04-22 15:04 | MHC.OFFVIS ---
Vital Signs 04/22/25 15:09 Height 5 ft 4 in Weight 160 lb BMI 27.5 BP 124/75 Blood Pressure Location Rt brachial Position Sitting Pulse 104 H Pulse Source Pulse Oximeter Pulse Oximetry (%) 99 Oxygen Delivery Method Room Air Intake Visit Reasons: Radiculopathy, cervical region Intake Note: Pain today 09/06 Crown Wheel Assembler Required: No Accompanied by: Self / Same As Patient Allergies No Known Allergies Allergy (Verified 04/22/25 15:08) HPI Comments Details: The patient is a 29-year-old female presenting with neck pain radiating to the right arm. The neck pain began gradually in May of the previous year, with no inciting trauma or accidents reported. In October, the pain became severe, localized to the right side of the neck and extending down the right arm, accompanied by numbness and tingling in the thumb and index finger. An EMG was ordered in October but has not yet been completed. The patient has experienced migraines with visual disturbances, which led to an emergency transport and an MRI that ruled out a stroke. A cervical sprain was diagnosed following a neck x-ray, and steroid treatment provided significant temporary relief. The patient has a history of pseudotumor cerebri and iron deficiency, managed with regular ophthalmology visits and monitoring. Surgical history includes a gastric sleeve bypass in 2021 and a hand surgery in 2012 due to a nerve injury from a cut. - Onset: Gradual onset since May of the previous year - Quality: Severe pain with numbness and tingling, dull, sore, hurting - Location: Right side of the neck radiating to the right arm - Radiation: Extends to the thumb and index finger - Exacerbating factors: Pain increases with left lateral neck movement - Relieving factors: Steroid treatment provided temporary relief - Affect: Pain impacts daily activities, particularly at night - Analgesia: Current use of ibuprofen and steroids; gabapentin prescribed for nighttime use - Adverse Effects: No significant adverse effects reported from current medications - Activities of Daily Living: Pain affects ability to perform daily tasks, especially after a long day - Aberrant Drug Related Behaviors: No aberrant behaviors reported Oswestry Neck Pain Disability Score=10 [facility] Medical History (Updated 04/22/25 @ 15:29 by POLLO Pierson) Pseudotumor cerebri syndrome Iron deficiency PCOS (polycystic ovarian syndrome) Surgical History (Updated 04/22/25 @ 15:29 by POLLO Pierson) Hx of tubal ligation H/O gastric sleeve (~2021) H/O hand surgery (~2012) Family History Father CVA (cerebral vascular accident) Other Diabetes Hypertension Social History Housing: House Alcohol intake: current Alcohol intake frequency: holidays/special occasions only Patient Tobacco Use Status: Never used Tobacco e-Cigarette/Vaping Use: Never Used service: No Current occupational status: employed 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 - [employer] Current occupational exposures/hazards: No Cognitive needs: No Hearing needs: No Vision needs: Yes Review of Systems Const Details: - Musculoskeletal: Reports neck pain radiating to the right arm, numbness, and tingling in the thumb and index finger - Neurological: Reports migraines with visual disturbances, denies weakness - Gastrointestinal: Denies gastrointestinal issues, advised to avoid ibuprofen post-gastric sleeve All systems reviewed & are unremarkable except as noted in HPI and below Physical Exam Vital Signs: Last Vital Signs Pulse 104 H 04/22/25 15:09 BP 124/75 04/22/25 15:09 Pulse Ox 99 04/22/25 15:09 Oxygen Delivery Method Room Air 04/22/25 15:09 BMI result Body Mass Index 27.5 General: Appears afebrile. Alert and oriented. Mood and affect appropriate. Follows and participates in conversation appropriately. Respiratory effort is unlabored. No cough. Able to transition from sit to stand unassisted. Ambulates with bilaterally normal heel strike and toe off. Neck Other: Patient with decreased cervical ROM in all planes/especially with left lateral rotation. Cervical extension/flexion does not reproduce significant pain. Spurling compression test equivocal. Elvey's tension test positive on the right, with radiation of pain from neck to wrist and into right 4th and 5th digits. Lhermitte's test was negative. DTR intact, +2 and symmetrical. Patient demonstrated 5/5 motor strength of bilateral upper extremities. 2 + radial pulses. Significant tightness throughout right upper trapezius as well as TTP throughout bilateral upper trapezius muscles. No paravertebral tenderness over facet joints bilaterally. Neck: Yes normal visual inspection, Yes full ROM, Yes no lymphadenopathy, Yes supple, No anterior neck swelling, No torticollis, Yes no JVD, No prominent supraclavicular fat pad and Yes prominent dorsocervical fat pad (mild) Back/Spine/Pelvis Cervical Spine: cervical ROM normal, No Lhermitte's sign positive, cervical muscular tenderness, pain with cervical ROM, No Cervical spine scars present, cervical spasm (right), No Cervical spine tenderness and No step off deformity Thoracic/Lumbar Spine: thoracic and lumbar spine normal to inspection, No Thoracic/lumbar spine scar(s), No thoracic spinal tenderness and No lumbar spinal tenderness Extrem General: Yes capillary refill normal, Yes no clubbing, cyanosis or edema and Yes no calf tenderness Right upper extremity: shoulder/upper arm Details: normal to inspection, tenderness Location: of the A-C joint, over the biceps tendon and over the subacromial bursa, axillary nerve sensory function normal and normal ROM; no swelling, no ecchymosis, no crepitus, no deformity and no unusual warmth Results Reviewed Results Reviewed: US DOPPLER UPPER EXTREMITY ARTERIAL , RIGHT UPPER EXTREMITY 01/13/25 CLINICAL INFORMATION: Intermittent pain and swelling, right upper extremity. COMPARISON: None available. TECHNIQUE: Spectral color arterial Doppler ultrasound, right upper extremity. FINDINGS: Interrogated arteries included right subclavian artery, axillary artery, brachial artery, radial and ulnar arteries. There is normal patency throughout the interrogated arteries. There is no gross plaques. Right subclavian artery: Peak systolic velocity: 120 cm/s. Normal triphasic waveform. Right axillary artery:Peak systolic velocity: 67 cm/s. Normal triphasic waveform. Right brachial artery: Peak systolic velocity: 99- 108 cm/s. Normal triphasic waveform. Right radial artery: Peak systolic velocity: 76 cm/s. Normal triphasic waveform. Right ulnar artery: Peak systolic velocity: 42 cm/s. Biphasic waveform. IMPRESSION: Mild inflow disease, right ulnar artery. Normal patency of the interrogated arteries. No gross plaque. Assessment & Plan Assessment & Plan (1) Cervical radiculopathy: Code(s): M54.12 - Radiculopathy, cervical region Category: Medical (2) Paresthesia of right upper extremity: Code(s): R20.2 - Paresthesia of skin Category: Medical (3) Cervicalgia: Code(s): M54.2 - Cervicalgia Category: Medical (4) Right shoulder pain: Code(s): M25.511 - Pain in right shoulder Category: Medical (5) Cervical radiculopathy: Code(s): M54.12 - Radiculopathy, cervical region Category: Medical (6) Paresthesia of right upper extremity: Code(s): R20.2 - Paresthesia of skin Category: Medical (7) Cervicalgia: Code(s): M54.2 - Cervicalgia Category: Medical (8) Right shoulder pain: Code(s): M25.511 - Pain in right shoulder Category: Medical (9) Cervical radiculopathy: Code(s): M54.12 - Radiculopathy, cervical region Category: Medical (10) Cervicalgia: Code(s): M54.2 - Cervicalgia Category: Medical Plan The plan includes completing an EMG to assess for cervical radiculopathy, as it has not yet been performed despite being ordered in October. Physical therapy is recommended to address the neck pain, and an MRI may be expedited based on EMG results. Gabapentin is prescribed for nighttime use to manage numbness and tingling, with instructions to monitor for any adverse effects. The patient is advised to avoid ibuprofen due to her gastric sleeve surgery. All questions and concerns have been answered and patient agreed with the treatment plan. Follow up for EMG results and sooner as needed. Patient was informed and verbally consented to the use of an ambient scribe for clinic note documentation during this visit. Orders: Orders NE electromyogram (EMG) Today M54.12 - Radiculopathy, cervical region, R20.2 - Paresthesia of skin PT Evaluation and Treatment 04/22/25 M25.511 - Pain in right shoulder, M54.12 - Radiculopathy, cervical region, M54.2 - Cervicalgia, R20.2 - Paresthesia of skin XR shoulder RT min 2V 04/22/25 M25.511 - Pain in right shoulder XR cervical spine 4V 04/22/25 M54.12 - Radiculopathy, cervical region, M54.2 - Cervicalgia NE nerve conduction velocity Today M54.12 - Radiculopathy, cervical region, R20.2 - Paresthesia of skin Medications: New gabapentin 300 mg PO BEDTIME 30 caps 0RF pain 30 days M54.12 - Radiculopathy, cervical region, M54.2 - Cervicalgia, R20.2 - Paresthesia of skin Coding Level of Care Code New Pt Level 4 (04860) Diagnoses Cervical radiculopathy M54.12 Paresthesia of right upper extremity R20.2 Cervicalgia M54.2 Right shoulder pain M25.511
[2025-04-22 15:09] VITALS: BP 124/75; PULSE 104; O2SAT 99; BMI 27.5
--- OUTSIDE RECORDS SUMMARY | 2025-04-22 15:40 | XMS_ITS | Encounter Summary ---
Author Organization [facility] Address [address] [place] [address] Phone Care Team Providers Care Supply Chain Business Analyst Name Role Phone Emma Saini MD Primary Care Provider Unavailabl e Encounter Details Date Type Department Care Team (Late st Contact Info) Description 03/13/2017 Conversion Encounter [facility] - [address] [address] Social History Tobacco Use Types Packs/Day Years [...] on filedocumented in this encounter Care Teams Supply Chain Business Analyst Relationship Specialty Start Date End Date Emma Saini MD PCP - General 03/07/17 documented as of this encounter
--- OUTSIDE RECORDS SUMMARY | 2025-04-22 15:40 | XMS_ITS | Encounter Summary ---
Author Organization [facility] Address [address] [place] [address] Care Team Providers Care Barge Captain Name Role Phone Jacklyn Guzman MD Primary Care Prov ider Encounter Details Date Type Department Care Team Description 04/19/2022 Hospital Medical Records [address] [place] [address] Michelle Gonzalez MD [address] [place] [phone] Social History Tobacco Use Types Packs/Day Years Used Date Smoking Tobacco: Never Smokeless Tobacco: Never Alcohol Use Standard Drinks/Week Comments Yes 0 (1 standard drink = 0.6 oz pur e alcohol) soc Sex Assigned at Date Recorded Female 05/22/2021 4:59 PM E DT Job Start Date Occupation Industry Not on file Not on file Not on file COVID-19 Exposure Response Date Recorded In the last 10 days, have yo u been in contact with someone who was confirmed or suspected to have Coronavirus/COVID-19? No / Unsure 04/09/2022 2:49 PM EDT documented as of this encounter Plan of Treatment Not on file documented as of this encounter Visit Diagnoses Not on filedocumented in this encounter Care Teams Barge Captain Relationship Specialty Start Date End Date Jacklyn Guzman MD [address] [place] [address] PCP - General Internal Medicine 03/29/22 documented as of this encounter
--- OUTSIDE RECORDS SUMMARY | 2025-04-22 15:40 | XMS_ITS | Encounter Summary ---
Author Organization [facility] Address [address] [place] [address] Care Team Providers Care Network Solutions Architect Name Role Phone Rylee Obando MD Primary Care Provider Paige Sevilla MD Primary Care Provider UnaAshok Rivera MD Primary Care Provider UnaSabine Muniz Primary Care Provider Damon Fraser DO Primary Care Provider Nasrin Palmer MD Primary Care Provider Unavai Jacklyn Ng MD Primary Care Prov ider Encounter Details Date Type Department Care Team Description 01/08/2017 Orders Only [facility]ONE[facility] MANAGER - [place] [address] [place] [phone] Cinthia Abarca, CNM [address] [place] [phone] 8 weeks gestation of Social History Tobacco Use Types Packs/Day Years Used Date Smoking Tobacco: Never Smokeless Tobacco: Never Alcohol Use Standard Drinks/Week Comments No 0 (1 standard drink = 0.6 oz pur e alcohol) Sex Assigned at Date Recorded Female 05/22/2021 4:59 PM E DT Job Start Date Occupation Industry Not on file Not on file Not on file documented as of this encounter Plan of Treatment Not on file documented as of this encounter Procedures Procedure Name Priority Date/Time Associated Diagnosis Comments SONO LTD Routine 12/19/2016 8 weeks gestation of documented in this encounter Results * SONO LTD (12/19/2016) Cinthia Abarca CNChely ULTRASOUND documented in this encounter Visit Diagnoses Diagnosis 8 weeks gestation of state, incidental documented in this encounter Care Teams Network Solutions Architect Relationship Specialty Start Date End Date Rylee Obando MD PCP - General Internal Medicine 12/10/16 11/17/18 Paige Klein MD PCP - General Family Practice 11/18/18 07/27/19 Ashok Brumfield MD PCP - General Internal Medicine 09/14/19 12/04/20 Sabine Grant PCP - General Family Practice 07/28/19 09/13/19 Damon Harmon DO PCP - General Internal Medicine 12/05/20 Nasrin Bettencourt MD PCP - General Internal Medicine 06/08/21 03/28/22 Yomaira Rodriguez, Jacklyn Chaparro MD [address] [place] [id number] PCP - General Internal Medicine 03/29/22 documented as of this encounter
--- OUTSIDE RECORDS SUMMARY | 2025-04-22 15:40 | XMS_ITS | Clinical Summary ---
Author Organization [facility] Address [address] [place] [address] Phone Care Team Providers Care Development Analyst Name Role Phone Emma Saini MD [...] complete this topic Procedures * Due to [place] [employer] law, this organization might not be sharing sensitive test results. Procedure Name Priority Date/Time Associated Diagnosis Comments CHLAMYDIA AND GONORRHEA, AMPLIFIED Routine 11/09/2012 1:10 PM EDT from Last 3 Months or Most Recently Relevant to Health Maintenance Results * Due to [place] [employer] law, this organization might not be sharing sensitive test results. * Chlamydia and Gonorrhoea, Amplified (11/09/2012 1:10 PM EDT) URINE GC AMP PROBE NEGATIVE [facility] Comment: NO NEISSERIA GONORRHOEAE RNA DETECTED IN THIS PATIENT'S SAMPLE. (REFERENCE RANGE/NORMAL VALUE: NOT DETECTED) NOTE: THIS TEST USES GENERAL PRODUCTION LABORER-MEDIATED AMPLIFICATION METHOD TO DETECT rRNA FROM C.TRACHOMATIS [...] Final Result [facility] [address] [place] [address], from Last 3 Months or Most Recently Relevant to Health Maintenance Care Teams Development Analyst Relationship Specialty Start Date End Date Emma Saini MD PCP - General 03/07/17
--- OUTSIDE RECORDS SUMMARY | 2025-04-22 15:40 | XMS_ITS | Encounter Summary ---
Author Organization [facility] Address [address] [place] [address] Care Team Providers Care Manual Equipment Mechanic Name Role Phone Nasrin Bettencourt MD Primary Care Provider Jacklyn López MD Primary Care Prov ider Reason for Visit * Reason Onset Date Comments APPOINTMENT 09/18/2021 Encounter Details Date Type Department Care Team Description 09/18/2021 Telephone Gastroenterology - [address] [phone] Christopher Perera PA-C APPOINTMENT Social History Tobacco Use Types Packs/Day Years Used Date Smoking Tobacco: Never Smokeless Tobacco: Never Alcohol Use Standard Drinks/Week Comments Not Currently 0 (1 standard drink = 0.6 oz pur e alcohol) Sex Assigned at Date Recorded Female 05/22/2021 4:59 PM E DT Job Start Date Occupation Industry Not on file Not on file Not on file COVID-19 Exposure Response Date Recorded In the last month, have you been in contact with someone who was confirmed or suspected to have Coronavirus / COVID-19? Yes 09/18/2021 9:22 AM EST documented as of this encounter Miscellaneous Notes * Telephone Encounter - Yessica Davis - 09/18/2021 12:02 PM EST Left message for patient please schedule 4 week follow up appt. With Cam from date 08/28/2021. documented in this encounter Plan of Treatment Not on file documented as of this encounter Visit Diagnoses Not on filedocumented in this encounter Care Teams Manual Equipment Mechanic Relationship Specialty Start Date End Date Nasrin Bettencourt MD PCP - General Internal Medicine 06/08/21 03/28/22 Jacklyn Guzman MD [address] [place] [id number] PCP - General Internal Medicine 03/29/22 documented as of this encounter
--- OUTSIDE RECORDS SUMMARY | 2025-04-22 15:40 | XMS_ITS | Encounter Summary ---
Author Organization [facility] Address [address] [place] [address] Care Team Providers Care Art Manager Name Role Phone Jacklyn Guzman MD Primary Care Prov ider Encounter Details Date Type Department Care Team Description 04/25/2022 Orders Only Medical Records [address] [place] [address] Michelle Gonzalez MD [address] [place] [phone] Social History Tobacco Use Types Packs/Day [...] Procedure Name Priority Date/Time Associated Diagnosis Comments OUTSIDE PATHOLOGY Routine 04/19/2022 documented in this encounter Results * OUTSIDE PATHOLOGY (04/19/2022) Michelle Gonzalez MD OUTSIDE LAB documented in this encounter Visit Diagnoses Not on filedocumented in this encounter Care Teams Art Manager Relationship Specialty Start Date End Date Jacklyn Guzman MD [address] [place] [id number] PCP - General Internal Medicine 03/29/22 documented as of this encounter
--- OUTSIDE RECORDS SUMMARY | 2025-04-22 15:40 | XMS_ITS | Encounter Summary ---
Author Organization [facility] Address [address] [facility] [address] [place] [phone] Phone Care Team Providers Care Under Water Assistant Name Role Phone Ashok Brumfield MD Primary Care Provider Encounter Details Date Type Department Care Team ([facility] Contact Info) Description 10/05/2019 Procedure Pass [facility] [address] [place] [address] Social History Tobacco Use Types Packs/Day Years [...] on filedocumented in this encounter Care Teams Under Water Assistant Relationship Specialty Start Date End Date Ashok Brumfield MD PCP - General 09/28/19 documented as of this encounter Additional Source Comments The information contained in this document represents components of the legal health record. It is not the complete legal health record.[facility]
--- OUTSIDE RECORDS SUMMARY | 2025-04-22 15:41 | XMS_ITS | Encounter Summary ---
Author Organization [facility] Address [address] [place] [address] Care Team Providers Care Lens Polisher Name Role Phone Ashok Brumfield MD Primary Care Provider Damon Howe DO Primary Care Provider Nasrin Palmer MD Primary Care Provider Jacklyn López MD Primary Care Prov ider Encounter Details Date Type Department Care Team Description 11/20/2020 Release of Information Medical Records [address] [place] [phone] Abstract, Provider Social History Tobacco Use Types Packs/Day Years [...] or suspected to have Coronavirus / COVID-19? No / Unsure 11/17/2020 3:28 PM EDT documented as of this encounter Nursing Notes * Anahi Salinas - 11/20/2020 11:27 AM EDT AUTHORIZATION TO OBTAIN MEDICAL RECORDS FAXED TO [facility] documented in this encounter Plan of Treatment Not on file documented as of this encounter Visit Diagnoses Not on filedocumented in this encounter Care Teams Lens Polisher Relationship Specialty Start Date End Date Ashok Brumfield MD PCP - General Internal Medicine 09/14/19 12/04/20 Damon Harmon DO PCP - General Internal Medicine 12/05/20 Nasrin Bettencourt MD PCP - General Internal Medicine 06/08/21 03/28/22 Yomaira Rodriguez, Jacklyn Chaparro MD [address] [place] [phone] PCP - General Internal Medicine 03/29/22 documented as of this encounter
--- OUTSIDE RECORDS SUMMARY | 2025-04-22 15:41 | XMS_ITS | Clinical Summary ---
Author Organization [facility] Address [address] [facility] [address] [place] [address] Phone Care Team Providers Care Inclinometer Tester Name Role Phone Ashok Brumfield MD Primary [...] topic Medical Devices Not on file Insurance [facility] NON NSPG PCP JOSE [facility] NON NSPG PCP SILVER CLARITY CONNECTORCARE WELLSENSE NON NSPG PCP SILVER CLARITY CONNECTORCARE WELLSENSE NON NSPG PCP SILVER CLARITY CONNECTORCARE WELL[place]ENSE NON NSPG PCP SILVER CLARITY CONNECTORCARE [facility] NON NSPG PCP SILVER CLARITY CONNECTORCARE WELL[place]ENSE NON NSPG PCP SILVER CLARITY CONNECTORCARE [place] NON NSPG PCP SILVER CLARITY CONNECTORCARE Care Teams Inclinometer Tester Relationship Specialty Start Date End Date Ashok Brumfield MD PCP - General 09/28/19 Additional Source Comments The information contained in this document represents components of the legal health record. It is not the complete legal health record.[facility]
--- OUTSIDE RECORDS SUMMARY | 2025-04-22 15:41 | XMS_ITS | Clinical Summary ---
Author Organization [address] Address [address] [place] [phone] Phone Care Team Providers Care Patient Observation Assistant Name Role Phone Jacklyn Momin MD Primary [...] unspecified 01/07/2022 Overview (05/12/2024): Lissett Verma PhD [place] grade A esophagitis 08/28/2021 Abnormal uterine bleeding 12/09/2020 PCOS (polycystic ovarian syndrome) 11/17/2020 Overview (05/12/2024): Last Assessment & Plan: She was counseled re: implications of PCOS including irregular ovulation which can lead to endometrial hyperplasia or malignancy, and also subfertility or infertility. I also reviewed alf risks of cardiovascular disease and diabetes. I [...] saw swelling of optic nerve, rec see firearms specialist, optic nerve swelling. Head CT then obtained, extra fluid in ventricles. Then saw neuro, rec lumbar puncture, opening pressure 24.5. [place] better for awhile after lumbar puncture. Started on diamox even prior to lumbar puncture, on med since head CT summer 2018. Being followed by neurology in [place] yearly and [facility] in [place] yearly - all normal with decreased eye [...] 2011 Left PROCEDURE: HISTORICAL HAND SURGERY; COMMENT: [facility] TUBAL LIGATION 2017 PROCEDURE: HISTORICAL TUBAL LIGATION BARIATRIC SURGERY 04/19/2022 PROCEDURE: CA LAPS GSTRC RSTRICTIV PX LONGITUDINAL GASTRECTOMY Medical History Medical History Date Comments Anemia 2017 DX:Anemia Pseudotumor cerebri DX:Pseudotum or cerebri; COMMENT: dx 2018. Eating disorder, unspecified 01/07/2022 DX: Eating disorder, unspecified; COMMENT: Lissett Verma PhD Abnormal uterine bleeding 12/09/2020 DX:Abn ormal uterine bleeding [place] grade A esophagitis 08/28/2021 DX:[place] grade A esophagitis PCOS (polycystic ovarian syndrome) 11/17/2020 DX:PCOS (polycystic ovarian syndrome) Vitamin D deficiency 08/07/2020 DX:Vitamin D deficiency Morbid obesity with BMI of 4 0.0-44.9, adult ([facility] V24, [facility] V28) 08/18/2019 DX:Morbid [...] Results * Cervical Cancer Screening: HPV (10/23/2021) [facility] Cervical Cancer Screening: HPV negative, abstracted Historical Provider HEALTH MAINTENANCE Final Result * Lipid panel (08/05/2020) [facility] LDL/HDL Ratio 4 0 - 4 Triglycerides 95 0 - 150 mg/dL Cholesterol 166 0 - 200 mg/dL HDL 44 >=40 mg/dL LDL Cholesterol 103 0 - 103 mg/dL Blood Venous blood specimen / Unknown Historical Provider LAB BLOOD ORDERABLES Jessica l Result * HIV Screening (12/16/2016) [facility] HIV Screening abstracted Historical Provider HEALTH MAINTENANCE Final Result * Hepatitis C Screening (12/16/2016) Hepatitis C Screening abstracted us Historical Provider HEALTH MAINTENANCE Final Result from Last 3 Months or Most Recently Relevant to Health Maintenance Insurance [facility] Care Teams Patient Observation Assistant Relationship Specialty Start Date End Date Jacklyn Momin MD [address] [place] [phone] PCP - General Internal Medicine 03/29/22
--- OUTSIDE RECORDS SUMMARY | 2025-04-22 15:41 | XMS_ITS | Encounter Summary ---
Author Organization [facility] Address [address] [place] [address] Care Team Providers Care Hedis Manager Name Role Phone Paige Klein MD Primary Care Provider Ashok Ray MD Primary Care Provider Sabine Carrillo Primary Care Provider Damon Fraser DO Primary Care Provider Arely Nasrin Hadley MD Primary Care Provider Jacklyn López MD Primary Care Prov ider Encounter Details Date Type Department Care Team Description 12/23/2018 Barrel Dedenting Machine Operator Report Medical Records [address] [place] [address] Renae Obando MD Social History Tobacco Use Types Packs/Day Years [...] on filedocumented in this encounter Care Teams Hedis Manager Relationship Specialty Start Date End Date Paige Klein MD PCP - General Family Practice 11/18/18 07/27/19 Ashok Brumfield MD PCP - General Internal Medicine 09/14/19 12/04/20 Sabine Grant PCP - General Family Practice 07/28/19 09/13/19 Damon Harmon DO PCP - General Internal Medicine 12/05/20 Nasrin Bettencourt MD PCP - General Internal Medicine 06/08/21 03/28/22 Yomaira Rodriguez, Jacklyn Chaparro MD [address] [place] [phone] PCP - General Internal Medicine 03/29/22 documented as of this encounter
--- OUTSIDE RECORDS SUMMARY | 2025-04-22 15:41 | XMS_ITS | Encounter Summary ---
Author Organization [facility] Address [address] [place] [address] Phone Care Team Providers Care Lens Polisher Hand Name Role Phone Emma Saini MD Primary Care Provider Unavailabl e Encounter Details Date Type Department Care Team (Late st Contact Info) Description 12/06/2009 Documentation [facility] Family Medicine [address] [place] [address] Family Medicine, Physician [facility] [address] [place], [place] [id number] Social History Tobacco Use Types Packs/Day Years [...] in this encounter Care Teams Lens Polisher Hand Relationship Specialty Start Date End Date Emma Saini MD PCP - General 03/07/17 documented as of this encounter
--- OUTSIDE RECORDS SUMMARY | 2025-04-22 15:41 | XMS_ITS | Clinical Summary ---
Author Organization [facility] Address [address] [place] [address] Care Team Providers Care Nut Sheller Machine Operator Name Role Phone Jacklyn Guzman MD Primary Care Prov ider Allergies No known active allergies Medications Medication Sig Dispensed Refills Start Date End Date Status mometasone (ELOCON) 0.1 % cream Apply 0.5 FTU nightly for 2 weeks to the affected area. May use twice a week thereafter 45 g 0 09/16/2023 Active Norethin-Eth Estrad-Fe Biphas 1 MG-10 MCG / 10 MCG Tab Take 1 Tablet by mouth daily. 28 Tablet 11 01/20/2024 Active Active Problems Problem Noted Date Class 2 obesity due to exces s calories with body mass index (BMI) of 35.0 to 35.9 in adult 07/04/2022 History of sleeve gastrectomy 04/22/2022 Overview: 04/19/2022 Lichen simplex chronicus 03/29/2022 Last Assessment & Plan: Exam findings consistent with lichen simplex chronicus reviewed with the patient. Wet prep positive for yeast. Vaginal culture collected for yeast speciation. Rx Diflucan x2 doses prescribed. She was also given Mycolog, instructed on use twice daily x4 weeks. Patient to return for further evaluation of symptoms not resolve following treatment. Vaginal yeast infection 03/29/2022 Last Assessment & Plan: See lichen simplex chronicus Eating disorder, unspecified 01/07/2022 Overview: Lissett Verma PhD [place] grade A esophagitis 08/28/19 22 Abnormal uterine bleeding 12/09/2020 PCOS (polycystic ovarian syndrome) 11/17 Last Assessment & Plan: She was counseled re: implications of PCOS including irregular ovulation which can lead to endometrial hyperplasia or malignancy, and also subfertility or infertility. I also reviewed care home risks of cardiovascular disease and diabetes. I [...] Vitamin D deficiency 08/07/2020 Pseudotumor cerebri 08/17/2019 Overview: Dx 2018, lumbar puncture summer 2018. Symptoms started 2017, saw eye doctor and advised nothing . Symptoms were vision blank for a few seconds , dx in ER, no brain imaging though. PCP had dx vertigo. At eye doctor then saw swelling of optic nerve, rec see behavioral health specialist, optic nerve swelling. Head CT then obtained, extra fluid in ventricles. Then saw neuro, rec lumbar puncture, opening pressure 24.5. [place] better for awhile after lumbar puncture. Started on diamox even prior to lumbar puncture, on med since head CT summer 2018. Being followed by neurology in [place] yearly and [facility] in [place] yearly - all normal with decreased eye pressure Anemia 2017 Overview: Errous fumarate BID CBC monthly Counseling on iron rich food Resolved Problems Problem Noted Date Resolved Date Morbid obesity with BMI of 40.0-44.9, adult 07/2907/04/2022 Echogenic intracardiac focus of fetus on prenata l ultrasound 03/24/2017 11/17/2020 Overview: F/U U/S sched 2 weeks Encounter for supervision of other normal pregna ncy 12/16/2016 11/17/2020 Overview: 1. [place] site: /[facility] 2. Delivery site: [facility] 3. Dating criteria: early U/S 3. Blood type: O pos 4. Genetic screening: Date: Result: 5. GBS: Date: 07/03/17 negative 6. FOB name: 7. Plans A. Epidural or other pain management - epidural B. Labor support identified - C. Tdap - Date: 04/23/17 D. Breast or Bottle feed: breast E. Baby's name - F. Circumcision - Immunizations Name Administration Dates Next Due COVID-19 (Pfizer) 09/24/2020,09/03/2020 COVID-19 (Pfizer) Pt Reported 04/26/2021, 021,09/03/2020 Influenza (> 6 Months) 04/23/2019,07/18/2016 Influenza Flu (PT Reported) 04/17/2021 Influenza Vaccine-preservati ve Free-quadrivalent 4 Years 04/23/2017 MMR (Fgnyhow-Dnauv-Srfhlqs) 08/07/2016 Meningococcal (Menactra) 02/03/2019 Tdap 04/23/2017,07/18/2016 Family History Medical History Relation Name Comments No Known Problems Brother 1 No Known Problems Brother 2 No Known Problems Daughter No Known Problems Father Asthma Mother Hypertension Paternal Grandmother No Known Problems Sister 1 No Known Problems Sister 2 No Known Problems Son 1 No Known Problems Son 2 CA Breast Negative Hx CA Colon Negative Hx CA Ovarian Negative Hx Relation Name Status Comments Brother 1 Alive Brother 2 Alive Daughter Alive Father Alive Mother Alive Paternal Grandmother Alive Sister 1 Alive Sister 2 Alive Son 1 Alive Son 2 Alive Social History Tobacco Use Types Packs/Day Years Used Date Smoking Tobacco: Never Smokeless Tobacco: Never Tobacco Cessation:Counseling Given: Not Answered Alcohol Use Standard Drinks/Week Comments Yes 0 (1 standard drink = 0.6 oz pur e alcohol) soc Sex Assigned at Date Recorded Female 05/22/2021 4:59 PM E DT Job Start Date Occupation Industry Not on file Not on file Not on file Last Filed Vital Signs Vital Sign Reading Time Taken Comments Blood Pressure 111/74 01/20/2024 8:36 AM EDT Pulse 79 01/20/2024 8:36 AM EDT Temperature 36.6 C (97.9 F) 06/25/2023 3:25 PM EST Respiratory Rate 14 09/16/2023 8:30 AM EST Oxygen Saturation 97% 12/31/2021 10:00 AM EDT Inhaled Oxygen Concentration - - Weight 68 kg (150 lb) 01/20/2024 8:36 AM EDT Height 162.6 cm (5' 4 ) 01/20/2024 8:36 AM EDT Body Mass Index 25.75 01/20/2024 8:36 AM EDT Plan of Treatment Health Maintenance Due Date Last Done Comments BMI CHECK/ADVISE 07/28/2024 01/20/2024, , 12/31/2021, Additional history exists DEPRESSION SCREENING/FOLLOWUP 07/28/2024 12/31/2021 SOCIAL NEEDS SCREENING 07/28/2024 12/31/2021 CERVICAL CANCER SCREENING 10/23/2024 10/23/2021, Covid-19 Vaccine (2022-08 4 season) 2025 04/26/2021, 09/24/2020, 09/24/2020, Additional history exists INFLUENZA (#1) 2025 04/17/2021, 03/29, 04/23/2017, Additional history exists CHOLESTEROL SCREENING 08/05/2025 08/05/2020 BASELINE HEALTH EXAM 18-39 12/31/2026 12/31/2021 DTAP/TDAP/TD (3 - Td or Tdap) 04/23/2027 04/23/2017, 07/18/2016 PNEUMOCOCCAL VACCINE FOR HIG H RISK PATIENTS (#1) 2059 Care Teams Nut Sheller Machine Operator Relationship Specialty Start Date End Date Jacklyn Guzman MD [address] [place] [phone] PCP - General Internal Medicine 03/29/22
--- OUTSIDE RECORDS SUMMARY | 2025-04-22 15:41 | XMS_ITS | Encounter Summary ---
Author Organization [facility] Address [address] [place] [address] Care Team Providers Care Outdoor Studies Professor Name Role Phone Nasrin Bettencourt MD Primary Care Provider Jacklyn López MD Primary Care Prov ider Encounter Details Date Type Department Care Team Description 07/02/2021 Orders Only General Surgery - [place] [address] [facility] [address] [place] [address] Michelle Gonzalez MD [address] [facility] [address] [place] [address] Hiatal hernia with GERD Social History Tobacco Use Types Packs/Day Years [...] have Coronavirus / COVID-19? No / Unsure 06/08/2021 7:23 AM EST documented as of this encounter Plan of Treatment Not on file documented as of this encounter Procedures Procedure Name Priority Date/Time Associated Diagnosis Comments CHG RADIOLOGIC EXAM UPR GI T RC DOUBLE CONTRAST STUDY Routine 06/15/2021 Hiatal hernia with GERD documented in this encounter Results * CHG RADIOLOGIC EXAM UPR GI TRC DOUBLE CONTRAST STUDY (06/15/2021) Michelle Gonzalez MD OUTSIDE RADIOLOGY documented in this encounter Visit Diagnoses Diagnosis Hiatal hernia with GERD documented in this encounter Care Teams Outdoor Studies Professor Relationship Specialty Start Date End Date Nasrin Bettencourt MD PCP - General Internal Medicine 06/08/21 03/28/22 Jacklyn Guzman MD [address] [place] [id number] PCP - General Internal Medicine 03/29/22 documented as of this encounter
--- OUTSIDE RECORDS SUMMARY | 2025-04-22 15:41 | XMS_ITS | Encounter Summary ---
Author Organization [facility] Address [address] [place] [address] Care Team Providers Care Sliver Cutter Name Role Phone Ashok Brumfield MD Primary Care Provider Sabine Carrillo Primary Care Provider Damon Fraser DO Primary Care Provider Nasrin Palmer MD Primary Care Provider Jacklyn López MD Primary Care Prov ider Reason for Visit * Reason Onset Date Comments dizziness 08/09/2019 Encounter Details Date Type Department Care Team Description 08/09/2019 Telephone Medicine/Pediatrics - [address] [id number] Ashok Brumfield MD dizziness Social History Tobacco Use Types Packs/Day Years Used Date Smoking Tobacco: Never Smokeless Tobacco: Never Alcohol Use Standard Drinks/Week Comments No 0 (1 standard drink = 0.6 oz pur e alcohol) Sex Assigned at Date Recorded Female 05/22/2021 4:59 PM E DT Job Start Date Occupation Industry Not on file Not on file Not on file documented as of this encounter Miscellaneous Notes * Telephone Encounter - Sherron Shipley - 08/09/2019 3:37 PM EST Patient booked and transferred to nurse * Telephone Encounter - Kayla Chiu L.P.N. - 08/09/2019 3:10 PM EST Needs to have a first time apt booked * Telephone Encounter - Catherine Man - 08/09/2019 2:55 PM EST Symptoms patient is having: dizziness, new patient to Dr Brumfield, patient on 1 medication, patienthad spinal tap done last year at [facility] in January timeframe, re: pse (pseudo) tumor celibre?, patient states this is relating to there being too much fluid in her head. Patient actively contact her insurance to update them that she has Dr Brumfield as her pcp effective today. Patient last had a physical within the past year. If pain or injury related was it due to an accident at work or from a motor vehicle accident? NO If yes, gather 3rd democrat insurance information Date of accident/Injury: How long has patient had these symptoms?: weeks PCP: Sabine Grant Payor: [facility] / Plan: [facility] / Product Type: MEDICAID RISK documented in this encounter Plan of Treatment Not on file documented as of this encounter Visit Diagnoses Not on filedocumented in this encounter Care Teams Sliver Cutter Relationship Specialty Start Date End Date Ashok Brumfield MD PCP - General Internal Medicine 09/14/19 12/04/20 Sabine Grant PCP - General Family Practice 07/28/19 09/13/19 Damon Harmon DO PCP - General Internal Medicine 12/05/20 Nasrin Bettencourt MD PCP - General Internal Medicine 06/08/21 03/28/22 Jacklyn Guzman MD [address] [place] [id number] PCP - General Internal Medicine 03/29/22 documented as of this encounter
--- OUTSIDE RECORDS SUMMARY | 2025-04-22 15:41 | XMS_ITS | Encounter Summary ---
Author Organization [facility] Address [address] [place] [address] Care Team Providers Care Ladle Repairer Name Role Phone Damon Harmon DO Primary Care Provider Nasrin Palmer MD Primary Care Provider Jacklyn López MD Primary Care Prov ider Reason for Visit * Reason Onset Date Comments Flu Vaccine 04/24/2021 Encounter Details Date Type Department Care Team Description 04/24/2021 Telephone OBGYN - [place] [address] [place] [id number] Naz Nolan, [facility] [address] [place] [address] Flu Vaccine Social History Tobacco Use Types Packs/Day Years [...] encounter Miscellaneous Notes * Telephone Encounter - Janet Urrutia M.A. - 04/24/2021 3:42 PM EDT All set. -KM * Telephone Encounter - Svetlana Salcido - 04/24/2021 3:14 PM EDT [facility] the [facility] received, Vaccine Administered : Influenza, injectable, quadrivalent, preservative Dose: .50 ML Injection route\Site: IM/RD Lot # : [id number] Date Administered : Manufactured [employer] Expiration Date : 01/24/2022 documented in this encounter Plan of Treatment Not on file documented as of this encounter Visit Diagnoses Not on filedocumented in this encounter Care Teams Ladle Repairer Relationship Specialty Start Date End Date Damon Harmon DO PCP - General Internal Medicine 12/05/20 Nasrin Bettencourt MD PCP - General Internal Medicine 06/08/21 03/28/22 Jacklyn Guzman MD [address] [place] [id number] PCP - General Internal Medicine 03/29/22 documented as of this encounter
--- OUTSIDE RECORDS SUMMARY | 2025-04-22 15:41 | XMS_ITS | Encounter Summary ---
Author Organization [facility] Address [address] [place] [address] Phone Care Team Providers Care Cream Hauler Name Role Phone Emma Saini MD Primary Care Provider Unavailabl e Encounter Details Date Type Department Care Team (Late st Contact Info) Description 12/06/2009 Documentation [facility] [address] [place] [address] Family Medicine, Physician [facility] [address] [place], [place] [id number] Social History Tobacco Use Types Packs/Day Years [...] on filedocumented in this encounter Care Teams Cream Hauler Relationship Specialty Start Date End Date Emma Saini MD PCP - General 03/07/17 documented as of this encounter
--- OUTSIDE RECORDS SUMMARY | 2025-04-22 15:41 | XMS_ITS | Encounter Summary ---
Author Organization [facility] Address [address] [place] [address] Care Team Providers Care Technical Programs Manager Name Role Phone Nasrin Betetncourt MD Primary Care Provider Jacklyn López MD Primary Care Prov ider Reason for Visit * Reason Onset Date Comments Pre-op Needed 09/04/2021 Encounter Details Date Type Department Care Team Description 09/04/2021 Telephone Adult Medicine [address] [address] Nasrin Bettencourt MD Pre-op Needed Social History Tobacco Use Types Packs/Day Years [...] have Coronavirus / COVID-19? No / Unsure 09/04/2021 8:04 AM EST documented as of this encounter Miscellaneous Notes * Telephone Encounter - Prema Bee - 09/04/2021 2:06 PM EST Date of surgery:TBD What surgery is patient having (gall bladder, cataract, appendix, etc...)?: laparoscopic sleeve gastrectomy.surgery Surgeon's name: Dr. Blaine Perdomo Office phone number of surgeon: [phone] Fax # for surgeons office: [phone] (Required) Where is surgery being performed? [facility] Admitting Diagnosis/problem for surgery: Morbid obesity Is an EKG required for the pre-op workup? YES PCP: Nasrin Bettencourt Did you verify that the insurance below is correct? NO Patients insurance: Payor: [employer] [facility] / Plan: [facility] SILVER TYPE 2 / Product Type: HMO [id number] documented in this encounter Plan of Treatment Not on file documented as of this encounter Visit Diagnoses Not on filedocumented in this encounter Care Teams Technical Programs Manager Relationship Specialty Start Date End Date Nasrin Bettencourt MD PCP - General Internal Medicine 06/08/21 03/28/22 Jacklyn Guzman MD [address] [place] [id number] PCP - General Internal Medicine 03/29/22 documented as of this encounter
--- OUTSIDE RECORDS SUMMARY | 2025-04-22 15:41 | XMS_ITS | Encounter Summary ---
Author Organization [facility] Address [address] [place] [address] Care Team Providers Care Land Examiner Name Role Phone Ashok Brumfield MD Primary Care Provider Sabine Carrillo Primary Care Provider Damon Fraser DO Primary Care Provider Nasrin Palmer MD Primary Care Provider Jacklyn López MD Primary Care Prov ider Encounter Details Date Type Department Care Team Description 08/19/2019 Release of Information Medical Records [address] [place] [address] Abstract, Provider Social History Tobacco Use Types [...] filedocumented in this encounter Care Teams Land Examiner Relationship Specialty Start Date End Date Ashok Brumfield MD PCP - General Internal Medicine 09/14/19 12/04/20 Sabine Grant PCP - General Family Practice 07/28/19 09/13/19 Damon Harmon DO PCP - General Internal Medicine 12/05/20 Nasrin Bettencourt MD PCP - General Internal Medicine 06/08/21 03/28/22 Jacklyn Guzman MD [address] [place] [address] PCP - General Internal Medicine 03/29/22 documented as of this encounter
--- OUTSIDE RECORDS SUMMARY | 2025-04-22 15:41 | XMS_ITS | Encounter Summary ---
Author Organization [facility] Address [address] [place] [address] Care Team Providers Care Circus Laborer Name Role Phone Nasrin Bettencourt MD Primary Care Provider Jacklyn López MD Primary Care Prov ider Encounter Details Date Type Department Care Team Description 07/25/2021 Hospital Medical Records [address] [place] [address] Belgica Turner MD [address] [place] [address] Social History Tobacco Use Types Packs/Day Years [...] have Coronavirus / COVID-19? No / Unsure 07/13/2021 1:34 PM EST documented as of this encounter Plan of Treatment Not on file documented as of this encounter Visit Diagnoses Not on filedocumented in this encounter Care Teams Circus Laborer Relationship Specialty Start Date End Date Nasrin Bettencourt MD PCP - General Internal Medicine 06/08/21 03/28/22 Jacklyn Guzman MD [address] [place] [id number] PCP - General Internal Medicine 03/29/22 documented as of this encounter
--- OUTSIDE RECORDS SUMMARY | 2025-04-22 15:41 | XMS_ITS | Encounter Summary ---
Author Organization [facility] Address [address] [place] [address] Care Team Providers Care Center Rep Name Role Phone Ashok Brumfield MD Primary Care Provider Damon Howe DO Primary Care Provider Nasrin Palmer MD Primary Care Provider Jacklyn López MD Primary Care Prov ider Reason for Visit * Reason Onset Date Comments Error 11/08/2020 Encounter Details Date Type Department Care Team Description 11/08/2020 Telephone OBGYN - [place] [address] [place] [address] Naz Nolan, [place] [address] [place] [address] Error Social History Tobacco Use Types Packs/Day Years [...] encounter Miscellaneous Notes * Telephone Encounter - Heidi Hsu - 11/08/2020 11:01 AM EDT error documented in this encounter Plan of Treatment Not on file documented as of this encounter Visit Diagnoses Not on filedocumented in this encounter Care Teams Center Rep Relationship Specialty Start Date End Date Ashok Brumfield MD PCP - General Internal Medicine 09/14/19 12/04/20 Damon Harmon DO PCP - General Internal Medicine 12/05/20 Narsin Bettencourt MD PCP - General Internal Medicine 06/08/21 03/28/22 Yomaira Rodriguez, Jacklyn Chaparro MD [address] [place] [id number] PCP - General Internal Medicine 03/29/22 documented as of this encounter
--- OUTSIDE RECORDS SUMMARY | 2025-04-22 15:41 | XMS_ITS | Encounter Summary ---
Author Organization [facility] Address [address] [place] [address] Care Team Providers Care Supervisor Paste Plant Name Role Phone Jaclkyn Guzman MD Primary Care Prov ider Encounter Details Date Type Department Care Team Description 06/30/2023 Pt. Non Urgent Medical Question OBGYN - [facility] [address] [place] [address] Rima Be PA-C [address] [place] [address] Social History Tobacco Use Types Packs/Day Years [...] encounter Miscellaneous Notes * Telephone Encounter - Rama Street R.N. - 07/01/2023 8:36 AM ESTFrom: Charisse Fernandez To: Chely Be Sent: 06/30/2023 4:59 PM EST Subject: Test results Good evening, Just wanted to check if you received the results for the BV or yeast infection? Thank you, Charisse documented in this encounter Plan of Treatment Not on file documented as of this encounter Visit Diagnoses Not on filedocumented in this encounter Care Teams Supervisor Paste Plant Relationship Specialty Start Date End Date Jacklyn Guzman MD [address] [place] [id number] PCP - General Internal Medicine 03/29/22 documented as of this encounter
== END 2025-04-22 15:32 | disposition home or self-care (01) ==
LOC: HO.PMC 15:03
PROVIDERS: PCP Physician Assistant; Visit Provider Nurse Practitioner Family
DX: M54.12 Radiculopathy, cervical region (principal); R20.2 Paresthesia of skin; M54.2 Cervicalgia; M25.511 Pain in right shoulder
CPT/HCPCS: 99204

== ENCOUNTER 2025-04-27 11:04 | Outpatient (AMB) | payer BC, SELFPAY ==
--- NOTE | 2025-04-27 11:18 | MHC.PC.OV ---
Vital Signs 04/27/25 11:19 Height 5 ft 4 in Weight 159 lb 8 oz BMI 27.4 BP 100/58 L Blood Pressure Location Lt brachial Position Sitting Pulse 60 Pulse Source Pulse Oximeter Temp 97.3 F Temp Source Temporal Artery Scan Pulse Oximetry (%) 98 Oxygen Delivery Method Room Air Intake Visit Reasons: annual exam Intake Note: Patient is here today for a physical. 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 Patient has a past medical history significant for PCOS, iron-deficiency and recent history of intermittent right upper extremity pain and swelling Concern--> patient reports joint pain primarily affecting the right side, including the knee and neck. She is currently under the care of a painter barrel and has been advised to consider physical therapy and anti-inflammatory medications such as ibuprofen or naproxen. An x-ray of the knee has been suggested to further evaluate the joint pain. ,, Iron-deficiency anemia: recent blood work indicating a hemoglobin level of 7.8 g/dL, which is close to the threshold for considering a blood transfusion. She reports regular menstrual cycles of 45 days and experiences cravings for ice and fatigue, which are indicative of iron deficiency anemia. She denies having any overt signs of bleeding or heavy menstruations.. The patient has been advised to start iron supplementation, initially once a day to avoid constipation, with a plan to increase to two or three times daily as tolerated. Peripheral Edp Equipment Operator: Has up coming appt with [facility] here in [place] Vaccines: Up-to-date with flu vaccine, tetanus vaccine and COVID vaccines Laboratory Tests 04/05/19 04/22/25 21:04 06:41 RBC 4.30 Hgb 7.8 L MCV 83.8 63.5 L Creatinine 0.69 Iron 18 L PFSH Medical History Pseudotumor cerebri syndrome Iron deficiency PCOS (polycystic ovarian syndrome) Surgical History Hx of tubal ligation H/O gastric sleeve (~2021) H/O hand surgery (~2012) Family History (Updated 04/27/25 @ 11:43 by Dave Anaya PA-C) Father CVA (cerebral vascular accident) Diabetes Mother Asthma Other Hypertension Social History Housing: House Alcohol intake: current Alcohol intake frequency: holidays/special occasions only Patient Tobacco Use Status: Never used Tobacco e-Cigarette/Vaping Use: Never Used Second Hand Smoke Exposure: No service: No Current occupational status: employed 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[employer] Current occupational exposures/hazards: No Cognitive needs: No Hearing needs: No Vision needs: Yes Questionnaire Thrive Questionnaire Date Thrive assessed: 11/22/24 I am a: Patient What is your living situation today?: I have a steady place to live Within the past 12 months, did the food you bought not last and you didn't have the money to get more?: Never true Within the past 12 months, did you worry whether your food would run out before you got money to buy more?: Never true Do you have trouble paying for medicines?: No Do you have trouble getting transportation to medical appointments?: No Do you have trouble paying your heating and electricity bill?: No Do you have trouble taking care of your child, family member or friend?: No Do you have trouble with day-to-day activities such as bathing, preparing meals, shopping, managing finances, etc.?: No Are you currently unemployed and looking for a job?: No Are you interested in more education?: No Please select the resources that you would like help with: None Currently or been in a relationship where the following occur: No concerns reported THRIVE Score: 0 PIYUSH-7 AMB Questionnaire PIYUSH-7 Date PIYUSH - 7 assessed: 11/22/24 Source: Developed by Drs. Damon Escobedo, Mindi Taylor, Bradley Trujillo and colleagues, with an educational cynthia from [employer]. Review of Systems Const Denies body aches, Denies chills, Denies excessive sweating, Reports fatigue, Denies fever(s) and Denies headache(s) Eyes Denies blurry vision ENT Denies dysphagia, Denies vertigo, Denies dizziness, Denies headache(s), Denies hearing loss and Denies tinnitus Card Denies chest pain, Denies chest pain with activity, Denies syncope, Denies irregular heart rhythm and Denies dyspnea Resp Denies chest congestion, Denies cough, Denies hemoptysis, Denies dyspnea and Denies wheezing GI Denies abdominal pain, Denies melena, Denies hematochezia, Denies coffee ground emesis, Denies dysphagia, Denies diarrhea, Denies nausea and Denies vomiting Denies urinary frequency, Denies dysuria, Denies urinary hesitancy and Denies urinary urgency Musc Details: + right knee pain Reports arthralgias, Denies limited range of motion, Denies muscle cramps and Denies muscle weakness Skin/Breast Denies rash and Denies skin ulcer Neuro Denies Abnormal speech present, Denies confusion, Denies vertigo, Denies dizziness, Denies syncope, Denies headache(s), Denies memory loss and Denies seizure-like activity Psych Denies anxiety, Denies confusion, Denies depression, Denies memory loss, Denies panic attacks and Denies paranoia Endo Denies excessive sweating, Reports fatigue, Denies flushing, Denies polydipsia and Denies polyuria Aller/Immun Denies wheezing Physical exam (Primary Care) Vital Signs: Last Vital Signs Temp 97.3 F 04/27/25 11:19 Pulse 60 04/27/25 11:19 BP 100/58 L 04/27/25 11:19 Pulse Ox 98 04/27/25 11:19 Oxygen Delivery Method Room Air 04/27/25 11:19 BMI result Body Mass Index 27.4 Tobacco/Smoking Status: Tobacco use Status Tobacco use date assessed 04/27/25 04/27/25 11:22 Patient Tobacco Use Status Never used Tobacco 04/27/25 11:22 e-Cigarette/Vaping Use Never Used 04/27/25 11:22 Thrive Assessment: Date of Thrive Assessment Date Thrive assessed 11/22/24 04/27/25 11:22 Currently or been in a relationship where the following occur: No concerns reported Const General: cooperative, comfortable, no acute distress, alert and awake; No confusion Orientation/consciousness: oriented to person, oriented to place, patient oriented x3 and No confusion HENMT Head: Yes normocephalic Ears: external ears normal and TM's normal bilaterally Face and sinus: No sinus tenderness Mouth: Normal oral and palatal mucosa present and tongue normal Teeth and gingiva: dentition normal and gingiva normal Throat: Yes posterior oropharynx normal, Yes tonsils normal and Yes uvula midline Eyes Conjunctivae: conjunctivae normal Sclerae: sclerae normal Pupils: Equal, round and reactive pupils present EOM: EOMs intact bilaterally Direct Ophthalmoscopy: No no photophobia Neck Neck: Yes no lymphadenopathy, No tender and Yes no JVD Thyroid: Thyroid normal Carotids: no bruits Chest Chest palpation & inspection: no tenderness Resp Effort & Inspection: normal respiratory effort, no audible wheezes, not labored and no stridor Auscultation: no crackles, no rales, no rhonchi and no wheezes Cardio Jugular venous distension: no JVD Rate: regular rate, not bradycardic and not tachycardic Rhythm: regular rhythm Bruits: no carotid bruits Peripheral pulses: Peripheral pulses 2+ throughout GI Inspection: Yes normal to inspection, No abdominal wall ecchymosis and No visible herniation Palpation (GI): Soft to palpation, nontender, no guarding, not rigid and No hepatosplenomegaly present Auscultation: normoactive bowel sounds General: Yes no CVA tenderness Back/Spine/Pelvis Back: no CVA tenderness and No back tenderness Cervical Spine: cervical ROM normal Thoracic/Lumbar Spine: thoracic and lumbar spine normal to inspection, straight leg raise negative bilaterally, No thoraco-lumbar ROM limited and No lumbar spinal tenderness Skin Lesions: no lesions Rashes: no rashes Wounds: no wounds Neuro General: oriented to person, oriented to place, patient oriented x3, CN's II-XI intact bilaterally and No confusion Cranial nerves: Yes Equal, round and reactive pupils present and Yes Normal accommodation reflex present Cognition (Neuro): normal cognition Speech: No Abnormal speech present Gait exam (Neuro): Normal gait present Motor exam (neuro): 5/5 motor strength present throughout Extrem Right upper extremity: full ROM; no cyanosis Left upper extremity: full ROM; no cyanosis Right lower extremity: no edema Left lower extremity: no edema Psych Appearance: grossly normal Mental Status: mental status grossly normal Affect: normal affect Attitude: cooperative Thought process: Normal thought process present Coding Level of Care Code Est Pt Prev Care [id number]([id number]) Diagnoses Annual physical exam Z00.00 Acute pain of right knee M25.561 Chronicity: acute Polyarthralgia M25.50 Iron deficiency E61.1 Assessment & Plan Assessment & Plan (1) Annual physical exam: Code(s): Z00.00 - Encounter for general adult medical examination without abnormal findings Category: Medical Plan: As per HPI (2) Right knee pain: Code(s): M25.561 - Pain in right knee Category: Medical Qualifiers: Chronicity: acute Qualified Code(s): M25.561 - Pain in right knee Plan: Unclear etiology to patient's right knee program though could be related to a tendon issue. She reports she has been walking more and even running at times which may have injured her knee. For the joint pain, an x-ray of the knee will be conducted to evaluate the joint further. The patient is advised to use anti-inflammatory medications such as ibuprofen or naproxen and consider physical therapy as part of the management plan. (3) Polyarthralgia: Code(s): M25.50 - Pain in unspecified joint Category: Medical Plan: Will test KAYLA in rheumatology labs due to patient's multiple joint pains . (4) Iron deficiency: Code(s): E61.1 - Iron deficiency Category: Medical Plan: The patient will begin iron supplementation to address the anemia, starting with once daily dosing to minimize constipation, with plans to increase to two or three times daily as tolerated. A follow-up blood test is scheduled for the week before to assess the effectiveness of the iron supplementation. Orders: Orders KAYLA Reflex Titer and Pattern Today M25.50 - Pain in unspecified joint XR knee RT 3V Today M25.561 - Pain in right knee Cyclic Citrullinated Peptide Today M25.50 - Pain in unspecified joint Anti DNA DS Antibody Today M25.50 - Pain in unspecified joint Rheumatoid Factor Today M25.50 - Pain in unspecified joint
[2025-04-27 11:19] VITALS: BP 100/58; PULSE 60; TEMP 36.3; O2SAT 98; BMI 27.4
--- OUTSIDE RECORDS SUMMARY | 2025-04-27 12:38 | XMS_ITS | Encounter Summary ---
Author Organization [facility] Address [address] [place] [address] Phone Care Team Providers Care Disability Aide Name Role Phone Emma Saini MD Primary Care Provider Unavailabl e Encounter Details Date Type Department Care Team (Late st Contact Info) Description 12/06/2009 Documentation [facility] Family Medicine [address] [place] [address] Family Medicine, Physician [facility] [address] [place], [place] [phone] Social History Tobacco Use Types Packs/Day Years [...] on filedocumented in this encounter Care Teams Disability Aide Relationship Specialty Start Date End Date Emma Saini MD PCP - General 03/07/17 documented as of this encounter
--- OUTSIDE RECORDS SUMMARY | 2025-04-27 12:38 | XMS_ITS | Encounter Summary ---
Author Organization [facility] Address [address] [place] [address] Phone Care Team Providers Care Fraud Representative Name Role Phone Emma Saini MD Primary Care Provider Unavailabl e Encounter Details Date Type Department Care Team (Late st Contact Info) Description 12/06/2009 Documentation [facility] Family Medicine [address] [place] [address] Family Medicine, Physician [facility] Anywhere [place], [place] [phone] Social History Tobacco Use Types Packs/Day Years [...] on filedocumented in this encounter Care Teams Fraud Representative Relationship Specialty Start Date End Date Emma Saini MD PCP - General 03/07/17 documented as of this encounter
--- OUTSIDE RECORDS SUMMARY | 2025-04-27 12:39 | XMS_ITS | Clinical Summary ---
Author Organization [address] Address [address] [place] [phone] Phone Care Team Providers Care Sausage Tier Name Role Phone Jacklyn Momin MD Primary [...] unspecified 01/07/2022 Overview (05/12/2024): Lissett Verma PhD [place] grade A esophagitis 08/28/2021 Abnormal uterine bleeding 12/09/2020 PCOS (polycystic ovarian syndrome) 11/17/2020 Overview (05/12/2024): Last Assessment & Plan: She was counseled re: implications of PCOS including irregular ovulation which can lead to endometrial hyperplasia or malignancy, and also subfertility or infertility. I also reviewed intermediate card tender risks of cardiovascular disease and diabetes. I [...] saw swelling of optic nerve, rec see clutch specialist, optic nerve swelling. Head CT then obtained, extra fluid in ventricles. Then saw neuro, rec lumbar puncture, opening pressure 24.5. [place] better for awhile after lumbar puncture. Started on diamox even prior to lumbar puncture, on med since head CT summer 2018. Being followed by neurology in [place] yearly and [facility] in [place] yearly - all normal with decreased eye pressure Anemia 2017 Overview (05/12/2024): Errous fumarate BID CBC monthly Counseling on iron rich food Immunizations Immunization Administration Dates Next Due Influenza Quadravalent, MDCK [...] 2011 Left PROCEDURE: HISTORICAL HAND SURGERY; COMMENT: [facility] TUBAL LIGATION 2017 PROCEDURE: HISTORICAL TUBAL LIGATION BARIATRIC SURGERY 04/19/2022 PROCEDURE: [place] LAPS GSTRC RSTRICTIV PX LONGITUDINAL GASTRECTOMY Medical History Medical History Date Comments Anemia 2017 DX:Anemia Pseudotumor cerebri DX:Pseudotum or cerebri; COMMENT: dx 2018. Eating disorder, unspecified 01/07/2022 DX: Eating disorder, unspecified; COMMENT: Lissett Verma PhD Abnormal uterine bleeding 12/09/2020 DX:Abn ormal uterine bleeding [place] grade A esophagitis 08/28/2021 DX:[place] grade A esophagitis PCOS (polycystic ovarian syndrome) 11/17/2020 DX:PCOS (polycystic ovarian syndrome) Vitamin D deficiency 08/07/2020 DX:Vitamin D deficiency Morbid obesity with BMI of 4 0.0-44.9, adult ([facility] V24, [facility] V28) 08/18/2019 DX:Morbid obesity wit h BMI of 40.0-44.9, adult ([facility]) History of sleeve gastrectomy 04/22/2022 DX :History [...] of 3 - 19+ 3-dose series) 2013 HPV Vaccines (1 - 3-dose SCDM series) 2021 Social Influencers of Health Screening 07/06/2022 Depression Screening 07/28/2024 COVID-19 Vaccine ( season) 2025 04/26/2021, 09/24/2020, 09/03/2020 Influenza Vaccine (#1) 2025 , 04/23/2019, 04/23/2017, Additional history exists Cholesterol Screening (Lipid Panel) 08/05/2025 08/05/2020 Cervical Cancer Screening: HPV 10/23/2026 10/23/2021 DTaP,Tdap,and Td Vaccines (3 - Td or Tdap) 04/23/2027 04/23/2017, 07/18/2016 RSV Immunization Adult Patients (1 - 1-dose 75+ series) 2069 MMR Vaccines Aged Out 08/07/2016 No longer [...] Results * Cervical Cancer Screening: HPV (10/23/2021) [facility] Cervical Cancer Screening: HPV negative, abstracted [facility] Provider HEALTH MAINTENANCE Final Result * Lipid panel (08/05/2020) [facility] LDL/HDL Ratio 4 0 - 4 Triglycerides 95 0 - 150 mg/dL Cholesterol 166 0 - 200 mg/dL HDL 44 >=40 mg/dL LDL Cholesterol 103 0 - 103 mg/dL Blood Venous blood specimen / Unknown [facility] Provider LAB BLOOD ORDERABLES Jessica l Result * HIV Screening (12/16/2016) [facility] HIV Screening abstracted us Historical Provider HEALTH MAINTENANCE Final Result * Hepatitis C Screening (12/16/2016) Hepatitis C Screening abstracted Historical Provider HEALTH MAINTENANCE Final Result from Last 3 Months or Most Recently Relevant to Health Maintenance Insurance [facility] Care Teams Sausage Tier Relationship Specialty Start Date End Date Jacklyn Momin MD [address] [place] [phone] PCP - General Internal Medicine 03/29/22
--- OUTSIDE RECORDS SUMMARY | 2025-04-27 12:39 | XMS_ITS | Clinical Summary ---
Author Organization [facility] Address [address] [place] [address] Phone Care Team Providers Care Manager In Training Name Role Phone Emma Saini MD Primary [...] complete this topic Procedures * Due to [place] [employer] law, this organization might not be sharing sensitive test results. Procedure Name Priority Date/Time Associated Diagnosis Comments CHLAMYDIA AND GONORRHEA, AMPLIFIED Routine 11/09/2012 1:10 PM EDT from Last 3 Months or Most Recently Relevant to Health Maintenance Results * Due to [place] law, this organization might not be sharing sensitive test results. * Chlamydia and Gonorrhoea, Amplified (11/09/2012 1:10 PM EDT) URINE GC AMP PROBE NEGATIVE [facility] Comment: NO NEISSERIA GONORRHOEAE RNA DETECTED IN THIS PATIENT'S SAMPLE. (REFERENCE RANGE/NORMAL VALUE: NOT DETECTED) NOTE: THIS TEST USES GIFT PACKER-MEDIATED AMPLIFICATION METHOD TO DETECT rRNA FROM C.TRACHOMATIS [...] OF INFECTION. URINE CHLAMYDIA AMP PROBE NEGATIVE [facility] Comment: NO CHLAMYDIA TRACHOMATIS RNA DETECTED IN THIS PATIENT'S SAMPLE. (REFERENCE RANGE/NORMAL VALUE: NOT DETECTED) 11/09/2012 1:10 PM EDT Narrative [facility] - 11/09/2012 1:10 PM EDT URINE CHLAMYDIA GC AMP PROBE us Chelo Carranza MD LAB MICROBIOLOGY - GENERAL ORDER ANDERSON Final Result [facility] [address] [place] [address], from Last 3 Months or Most Recently Relevant to Health Maintenance Care Teams Manager In Training Relationship Specialty Start Date End Date Emma Saini MD PCP - General 03/07/17
--- OUTSIDE RECORDS SUMMARY | 2025-04-27 12:39 | XMS_ITS | Clinical Summary ---
Author Organization [facility] Address [address] [place] [address] Phone Care Team Providers Care Plier Worker Name Role Phone Ashok Brumfield MD Primary [...] topic Medical Devices Not on file Insurance [facility] NON NSPG PCP JOSE MARIA [facility] CONNE[employer]CARE [address] [facility] [place] NON NSPG PCP SILVER CLARITY CONNECTORCARE WELLSENSE NON NSPG PCP SILVER CLARITY CONNECTORCARE WELL[employer]ENSE NON NSPG PCP SILVER CLARITY CONNECTORCARE WELL[place] NON NSPG PCP SILVER CLARITY CONNECTORCARE [place] NON NSPG PCP SILVER CLARITY CONNECTORCARE WELLSENSE NON NSPG PCP SILVER CLARITY CONNECTORCARE [place] NON NSPG PCP SILVER CLARITY CONNECTORCARE Care Teams Plier Worker Relationship Specialty Start Date End Date Ashok Brumfield MD PCP - General 09/28/19 Additional Source Comments The information contained in this document represents components of the legal health record. It is not the complete legal health record.[facility]
--- OUTSIDE RECORDS SUMMARY | 2025-04-27 12:39 | XMS_ITS | Encounter Summary ---
Author Organization [facility] Address [address] [place] [phone] Phone Care Team Providers Care Plating Tank Operator Apprentice Name Role Phone Ashok Brumfield MD Primary Care Provider Encounter Details Date Type Department Care Team ([facility] Contact Info) Description 10/05/2019 Procedure Pass [facility]ovascular [facility] Interventional Radiology [address] [place] [address] Social History Tobacco Use Types Packs/Day Years [...] on filedocumented in this encounter Care Teams Plating Tank Operator Apprentice Relationship Specialty Start Date End Date Ashok Brumfield MD PCP - General 09/28/19 documented as of this encounter Additional Source Comments The information contained in this document represents components of the legal health record. It is not the complete legal health record.[facility]
--- OUTSIDE RECORDS SUMMARY | 2025-04-27 12:39 | XMS_ITS | Encounter Summary ---
Author Organization [facility] Address [address] [place] [address] Phone Care Team Providers Care Family Lawyer Name Role Phone Emma Saini MD Primary Care Provider Unavailabl e Encounter Details Date Type Department Care Team (Late st Contact Info) Description 03/13/2017 Conversion Encounter [facility] - [address] [phone] Social History Tobacco Use Types Packs/Day Years [...] on filedocumented in this encounter Care Teams Family Lawyer Relationship Specialty Start Date End Date Emma Saini MD PCP - General 03/07/17 documented as of this encounter
== END 2025-04-27 12:36 | disposition home or self-care (01) ==
LOC: HO.HMCH 11:05
PROVIDERS: PCP Physician Assistant; Visit Provider Physician Assistant
DX: Z00.00 Encounter for general adult medical examination without abnormal findings (principal); M25.561 Pain in right knee; M25.50 Pain in unspecified joint; E61.1 Iron deficiency

== ENCOUNTER 2025-04-30 07:26 | Outpatient (REF) | payer BC, SELFPAY ==
--- NOTE | ~2025-04-30 | XR_ITS ---
CLINICAL HISTORY: M25.561 - Pain in right knee 3 view right knee Comparison: None provided Findings: No fractures or dislocations. Mild medial compartment joint space narrowing. No joint effusion. No radiopaque foreign body. IMPRESSION: 1. No acute findings. 2. Mild degenerative change. This document has been electronically signed by: Adonis Jade MD on 05/02/2025 10:46:56
--- NOTE | ~2025-04-30 | XR_ITS ---
CLINICAL HISTORY: M54.2 - Cervicalgia 6 views cervical spine Comparison: None provided Findings: Normal alignment. No acute fractures or dislocation. No significant degenerative change. Prevertebral soft tissues within normal limits. IMPRESSION: No acute findings. This document has been electronically signed by: Adonis Jade MD on 05/02/2025 10:46:08
--- NOTE | ~2025-04-30 | XR_ITS ---
CLINICAL HISTORY: M25.511 - Pain in right shoulder 4 view right shoulder Comparison: None provided Findings: Bones intact. No dislocations. No significant arthritic change. No erosions. No radiopaque foreign body. IMPRESSION: 1. No acute findings This document has been electronically signed by: Adonis Jade MD on 05/02/2025 10:45:39
--- OUTSIDE RECORDS SUMMARY | 2025-04-30 07:28 | XMS_ITS | Clinical Summary ---
Author Organization [facility] Address [address] [place] [address] Phone Care Team Providers Care Can Doffer Name Role Phone Ashok Brumfield MD Primary [...] you interested in more education? Not on lteitia e 11/22/2022 Are you concerned about learning? [...] topic Medical Devices Not on file Insurance [facility] NON NSPG PCP JOSE MARIA RICHAR[employer] CONNECTORCARE [address] [facility] [place] NON NSPG PCP SILVER CLARITY CONNECTORCARE WELLSENSE NON NSPG PCP SILVER CLARITY CONNECTORCARE WELLSENSE NON NSPG PCP SILVER CLARITY CONNECTORCARE WELL[employer]ENSE NON NSPG PCP SILVER CLARITY CONNECTORCARE [employer] NON NSPG PCP SILVER CLARITY CONNECTORCARE WELLSENSE NON NSPG PCP SILVER CLARITY CONNECTORCARE [place] NON NSPG PCP SILVER CLARITY CONNECTORCARE Care Teams Can Doffer Relationship Specialty Start Date End Date Ashok Brumfield MD PCP - General 09/28/19 Additional Source Comments The information contained in this document represents components of the legal health record. It is not the complete legal health record.[facility]
--- OUTSIDE RECORDS SUMMARY | 2025-04-30 07:28 | XMS_ITS | Clinical Summary ---
Author Organization [facility] Address [address] [place] [address] Phone Care Team Providers Care Roving Department Supervisor Name Role Phone Emma Saini MD Primary [...] complete this topic Procedures * Due to [place] [employer] law, this organization might not be sharing sensitive test results. Procedure Name Priority Date/Time Associated Diagnosis Comments CHLAMYDIA AND GONORRHEA, AMPLIFIED Routine 11/09/2012 1:10 PM EDT from Last 3 Months or Most Recently Relevant to Health Maintenance Results * Due to [place] [employer] law, this organization might not be sharing sensitive test results. * Chlamydia and Gonorrhoea, Amplified (11/09/2012 1:10 PM EDT) URINE GC AMP PROBE NEGATIVE [facility] Comment: NO NEISSERIA GONORRHOEAE RNA DETECTED IN THIS PATIENT'S SAMPLE. (REFERENCE RANGE/NORMAL VALUE: NOT DETECTED) NOTE: THIS TEST USES DRYWALL MECHANIC-MEDIATED AMPLIFICATION METHOD TO DETECT rRNA FROM C.TRACHOMATIS [...] OF INFECTION. URINE CHLAMYDIA AMP PROBE NEGATIVE [facility] Comment: NO CHLAMYDIA TRACHOMATIS RNA DETECTED IN THIS PATIENT'S SAMPLE. (REFERENCE RANGE/NORMAL VALUE: NOT DETECTED) 11/09/2012 1:10 PM EDT Narrative [facility] - 11/09/2012 1:10 PM EDT URINE CHLAMYDIA GC AMP PROBE us Chelo Carranza MD LAB MICROBIOLOGY - GENERAL ORDER ANDERSON Final Result [facility] [address] [place] [address], from Last 3 Months or Most Recently Relevant to Health Maintenance Care Teams Roving Department Supervisor Relationship Specialty Start Date End Date Emma Saini MD PCP - General 03/07/17
--- OUTSIDE RECORDS SUMMARY | 2025-04-30 07:28 | XMS_ITS | Clinical Summary ---
Author Organization [address] Address [address] [place] [phone] Phone Care Team Providers Care Production Control Technologist Name Role Phone Jacklyn Momin MD Primary [...] unspecified 01/07/2022 Overview (05/12/2024): Lissett Verma PhD [place] grade A esophagitis 08/28/2021 Abnormal uterine bleeding 12/09/2020 PCOS (polycystic ovarian syndrome) 11/17/2020 Overview (05/12/2024): Last Assessment & Plan: She was counseled re: implications of PCOS including irregular ovulation which can lead to endometrial hyperplasia or malignancy, and also subfertility or infertility. I also reviewed sports anchor risks of cardiovascular disease and diabetes. I [...] saw swelling of optic nerve, rec see emergency specialist, optic nerve swelling. Head CT then obtained, extra fluid in ventricles. Then saw neuro, rec lumbar puncture, opening pressure 24.5. [place] better for awhile after lumbar puncture. Started on diamox even prior to lumbar puncture, on med since head CT summer 2018. Being followed by neurology in [place] yearly and [facility] in [place] yearly - all normal with decreased eye [...] PROCEDURE: HISTORICAL HAND SURGERY; COMMENT: [facility] TUBAL LIGATION 2017 PROCEDURE: HISTORICAL TUBAL LIGATION BARIATRIC SURGERY 04/19/2022 PROCEDURE: [place] LAPS GSTRC RSTRICTIV PX LONGITUDINAL GASTRECTOMY Medical History Medical History Date Comments Anemia 2017 DX:Anemia Pseudotumor cerebri DX:Pseudotum or cerebri; COMMENT: dx 2018. Eating disorder, unspecified 01/07/2022 DX: Eating disorder, unspecified; COMMENT: Lissett Verma PhD Abnormal uterine bleeding 12/09/2020 DX:Abn ormal uterine bleeding [place] grade A esophagitis 08/28/2021 DX:[place] grade A esophagitis PCOS (polycystic ovarian syndrome) 11/17/2020 DX:PCOS (polycystic ovarian syndrome) Vitamin D deficiency 08/07/2020 DX:Vitamin D deficiency Morbid obesity with BMI of 4 0.0-44.9, adult ([facility] V24, [facility] V28) 08/18/2019 DX:Morbid obesity wit h BMI of 40.0-44.9, adult ([facility]) History of sleeve gastrectomy 04/22/2022 DX [...] Results * Cervical Cancer Screening: HPV (10/23/2021) [facility] Cervical Cancer Screening: HPV negative, abstracted [facility] Provider HEALTH MAINTENANCE Final Result * Lipid panel (08/05/2020) [facility] LDL/HDL Ratio 4 0 - 4 Triglycerides 95 0 - 150 mg/dL Cholesterol 166 0 - 200 mg/dL HDL 44 >=40 mg/dL LDL Cholesterol 103 0 - 103 mg/dL Blood Venous blood specimen / Unknown [facility] Provider LAB BLOOD ORDERABLES Jessica l Result * HIV Screening (12/16/2016) [facility] HIV Screening abstracted us Historical Provider HEALTH MAINTENANCE Final Result * Hepatitis C Screening (12/16/2016) Hepatitis C Screening abstracted Historical Provider HEALTH MAINTENANCE Final Result from Last 3 Months or Most Recently Relevant to Health Maintenance Insurance [facility] Care Teams Production Control Technologist Relationship Specialty Start Date End Date Jacklyn Momin MD [address] [place] [phone] PCP - General Internal Medicine 03/29/22
--- OUTSIDE RECORDS SUMMARY | 2025-04-30 07:28 | XMS_ITS | Encounter Summary ---
Author Organization [facility] Address [address] [place] [address] Phone Care Team Providers Care Dye Beck Reel Operator Name Role Phone Emma Saini MD Primary Care Provider Unavailabl e Encounter Details Date Type Department Care Team (Late st Contact Info) Description 12/06/[address] [facility] Family Medicine [address] [place] [address] Family Medicine, Physician [facility] [address] [place], [place] [phone] Social History Tobacco Use Types Packs/Day Years [...] on filedocumented in this encounter Care Teams Dye Beck Reel Operator Relationship Specialty Start Date End Date Emma Saini MD PCP - General 03/07/17 documented as of this encounter
--- OUTSIDE RECORDS SUMMARY | 2025-04-30 07:28 | XMS_ITS | Encounter Summary ---
Author Organization [facility] Address [address] [place] [address] Phone Care Team Providers Care Medical Or Surgical Instrument Maker Name Role Phone Emma Saini MD Primary Care Provider Unavailabl e Encounter Details Date Type Department Care Team (Late st Contact Info) Description 03/13/2017 Conversion Encounter [facility] - [address] [address] Social History Tobacco Use Types Packs/Day Years [...] on filedocumented in this encounter Care Teams Medical Or Surgical Instrument Maker Relationship Specialty Start Date End Date Emma Saini MD PCP - General 03/07/17 documented as of this encounter
--- OUTSIDE RECORDS SUMMARY | 2025-04-30 07:28 | XMS_ITS | Encounter Summary ---
Author Organization [facility] Address [address] [place] [address] Phone Care Team Providers Care Community Service Aide Name Role Phone Ashok Brumfield MD Primary Care Provider Encounter Details Date Type Department Care Team ([facility] st Contact Info) Description 10/05/2019 Procedure Pass [facility] Cardiovascular And Interventional Radiology [address] [place] [address] Social History Tobacco Use Types Packs/Day Years [...] on filedocumented in this encounter Care Teams Community Service Aide Relationship Specialty Start Date End Date Ashok Brumfield MD PCP - General 09/28/19 documented as of this encounter Additional Source Comments The information contained in this document represents components of the legal health record. It is not the complete legal health record.[facility]
--- OUTSIDE RECORDS SUMMARY | 2025-04-30 07:28 | XMS_ITS | Encounter Summary ---
Author Organization [facility] Address [address] [place] [address] Phone Care Team Providers Care Special Education Math Teacher Name Role Phone Emma Saini MD Primary Care Provider Unavailabl e Encounter Details Date Type Department Care Team (Late st Contact Info) Description 12/06/2009 Documentation [facility] Family Medicine [address] [place] [address] Family Medicine, Physician [facility] [address] [place], [place] [phone] Social History Tobacco Use Types Packs/Day Years [...] on filedocumented in this encounter Care Teams Special Education Math Teacher Relationship Specialty Start Date End Date Emma Saini MD PCP - General 03/07/17 documented as of this encounter
== END 2025-04-30 07:27 | disposition home or self-care (01) ==
LOC: HO.XRAY 07:26
PROVIDERS: PCP Physician Assistant; Visit Provider Physician Assistant
DX: M25.511 Pain in right shoulder (principal); M25.561 Pain in right knee; M54.2 Cervicalgia; M54.12 Radiculopathy, cervical region
CPT/HCPCS: 72050; 73030; 73562

== ENCOUNTER → 2025-04-30 07:29 | Outpatient (BNV) | payer BC, SELFPAY | PROVIDERS: PCP Physician Assistant; Visit Provider Radiology Vascular & Interventional Radiology | DX: M54.2 Cervicalgia (principal); M25.511 Pain in right shoulder; M25.861 Other specified joint disorders, right knee | CPT/HCPCS: 72050; 73030; 73562 ==

== ENCOUNTER 2025-06-01 13:53 | Outpatient (REF) | payer BC, SELFPAY ==
--- OUTSIDE RECORDS SUMMARY | 2025-06-01 18:37 | XMS_ITS | Encounter Summary ---
Author Organization [facility] Address [address] [place] [address] Care Team Providers Care Curve Saw Operator Name Role Phone Ashok Brumfield MD Primary Care Provider Damon Howe DO Primary Care Provider Nasrin Palmer MD Primary Care Provider Jacklyn López MD Primary Care Prov ider Encounter Details Date Type Department Care Team Description 08/07/2020 Orders Only Internal Medicine - [address], [address] [place] [address] Kee Parish PA-C Social History Tobacco Use Types Packs/Day Years [...] have Coronavirus / COVID-19? No / Unsure 08/05/2020 8:43 AM EST documented as of this encounter Plan of Treatment Not on file documented as of this encounter Visit Diagnoses Not on filedocumented in this encounter Care Teams Curve Saw Operator Relationship Specialty Start Date End Date Ashok Brumfield MD PCP - General Internal Medicine 09/14/19 12/04/20 Damon Harmon DO PCP - General Internal Medicine 12/05/20 Nasrin Bettencourt MD PCP - General Internal Medicine 06/08/21 03/28/22 Jacklyn Guzman MD [address] [place] [id number] PCP - General Internal Medicine 03/29/22 documented as of this encounter
--- OUTSIDE RECORDS SUMMARY | 2025-06-01 18:37 | XMS_ITS | Encounter Summary ---
Author Organization [facility] Address [address] [place] [address] Care Team Providers Care Casting Chipper Name Role Phone Ashok Brumfield MD Primary Care Provider Damon Howe DO Primary Care Provider Nasrin Palmer MD Primary Care Provider Jacklyn López MD Primary Care Prov ider Encounter Details Date Type Department Care Team Description 11/20/2020 Release of Information Medical Records [address] [place] [id number] Abstract, Provider Social History Tobacco Use Types [...] AUTHORIZATION TO OBTAIN MEDICAL RECORDS FAXED TO [facility] documented in this encounter Plan of Treatment Not on file documented as of this encounter Visit Diagnoses Not on filedocumented in this encounter Care Teams Casting Chipper Relationship Specialty Start Date End Date Ashok Brumfield MD PCP - General Internal Medicine 09/14/19 12/04/20 Damon Harmon DO PCP - General Internal Medicine 12/05/20 Nasrin Bettencourt MD PCP - General Internal Medicine 06/08/21 03/28/22 Yomaira Rodriguez, Jacklyn Chaparro MD [address] [place] [id number] PCP - General Internal Medicine 03/29/22 documented as of this encounter
--- OUTSIDE RECORDS SUMMARY | 2025-06-01 18:37 | XMS_ITS | Encounter Summary ---
Author Organization [facility] Address [address] [place] [address] Care Team Providers Care Zinc Chloride Operator Name Role Phone Ashok Brumfield MD Primary Care Provider Sabine Carrillo Primary Care Provider Damon Fraser DO Primary Care Provider Nasrin Palmer MD Primary Care Provider Jacklyn López MD Primary Care Prov ider Encounter Details Date Type Department Care Team Description 08/11/2019 Orders Only Medicine/Pediatrics - [address] [phone] Ashok Brumfield MD Social History Tobacco Use Types Packs/Day [...] on filedocumented in this encounter Care Teams Zinc Chloride Operator Relationship Specialty Start Date End Date Ashok Brumfield MD PCP - General Internal Medicine 09/14/19 12/04/20 Sabine Grant PCP - General Family Practice 07/28/19 09/13/19 Damon Harmon DO PCP - General Internal Medicine 12/05/20 Nasrin Bettencourt MD PCP - General Internal Medicine 06/08/21 03/28/22 Jacklyn Guzman MD [address] [place] [id number] PCP - General Internal Medicine 03/29/22 documented as of this encounter
--- OUTSIDE RECORDS SUMMARY | 2025-06-01 18:37 | XMS_ITS | Encounter Summary ---
Author Organization [facility] Address [address] [place] [address] Care Team Providers Care Senior Quality Technician Name Role Phone Paige Klein MD Primary Care Provider Ashok Ray MD Primary Care Provider Sabine Carrillo Primary Care Provider Damon Fraser DO Primary Care Provider Arely Nasrin Hadley MD Primary Care Provider Jacklyn López MD Primary Care Prov ider Encounter Details Date Type Department Care Team Description 12/23/2018 [place] Terrazzo Finisher Report Medical Records [address] [place] [id number] Renae Obando MD Social History Tobacco Use [...] on filedocumented in this encounter Care Teams Senior Quality Technician Relationship Specialty Start Date End Date Paige Klein MD PCP - General Family Practice 11/18/18 07/27/19 Ashok Brumfield MD PCP - General Internal Medicine 09/14/19 12/04/20 Sabine Grant PCP - General Family Practice 07/28/19 09/13/19 Damon Harmon DO PCP - General Internal Medicine 12/05/20 Nasrin Bettencourt MD PCP - General Internal Medicine 06/08/21 03/28/22 Yomaira Rodriguez, Jacklyn Chaparro MD [address] [place] [id number] PCP - General Internal Medicine 03/29/22 documented as of this encounter
--- OUTSIDE RECORDS SUMMARY | 2025-06-01 18:37 | XMS_ITS | Encounter Summary ---
Author Organization [facility] Address [address] [place] [address] Care Team Providers Care Senior Contracts Manager Name Role Phone Paige Klein MD Primary Care Provider Ashok Ray MD Primary Care Provider Sabine Carrillo Primary Care Provider Damon Fraser DO Primary Care Provider Arely Nasrin Hadley MD Primary Care Provider Jacklyn López MD Primary Care Prov ider Encounter Details Date Type Department Care Team Description 01/11/2019 Director Of Guidance In [employer] Report Medical Records [address] [place] [phone] Renae Obando MD Social History Tobacco Use [...] filedocumented in this encounter Care Teams Senior Contracts Manager Relationship Specialty Start Date End Date Paige Klein MD PCP - General Family Practice 11/18/18 07/27/19 Ashok Brumfield MD PCP - General Internal Medicine 09/14/19 12/04/20 Sabine Grant PCP - General Family Practice 07/28/19 09/13/19 Damon Harmon DO PCP - General Internal Medicine 12/05/20 Nasrin Bettencourt MD PCP - General Internal Medicine 06/08/21 03/28/22 Yomaira Rodriguez, Jacklyn Chaparro MD [address] [place] [id number] PCP - General Internal Medicine 03/29/22 documented as of this encounter
--- OUTSIDE RECORDS SUMMARY | 2025-06-01 18:37 | XMS_ITS | Encounter Summary ---
Author Organization [facility] Address [address] [place] [address] Care Team Providers Care Middle [employer] Humanities Teacher Name Role Phone Nasrin Bettencourt MD Primary Care Provider Jacklyn López MD Primary Care Prov ider Reason for Visit * Reason Onset Date Comments Pre-op Needed 09/04/2021 Encounter Details Date Type Department Care Team Description 09/04/2021 Telephone Adult Medicine [address] [address] Nasrin Bettencourt MD Pre-op Needed Social History [...] Blaine Perdomo Office phone number of surgeon: [phone] Fax # for surgeons office: [phone] (Required) [facility] performed? [facility] Admitting Diagnosis/problem for surgery: Morbid obesity Is an EKG required for the pre-op workup? YES PCP: Nasrin Bettencourt Did you verify that the insurance below is correct? NO Patients insurance: Payor: [employer] [facility] / Plan: [facility] SILVER TYPE 2 / Product Type: HMO [id number] documented in this encounter Plan of Treatment Not on file documented as of this encounter Visit Diagnoses Not on filedocumented in this encounter Care Teams Middle [employer] Humanities Teacher Relationship Specialty Start Date End Date Nasrin Bettencourt MD PCP - General Internal Medicine 06/08/21 03/28/22 Jacklyn Guzman MD [address] [place] [id number] PCP - General Internal Medicine 03/29/22 documented as of this encounter
--- OUTSIDE RECORDS SUMMARY | 2025-06-01 18:37 | XMS_ITS | Encounter Summary ---
Author Organization [facility] Address [address] [place] [address] Care Team Providers Care Income Tax Advisor Name Role Phone aNsrin Bettencourt MD Primary Care Provider Jacklyn López MD Primary Care Prov ider Reason for Visit * Reason Onset Date Comments APPOINTMENT 09/18/2021 Encounter Details Date Type Department Care Team Description 09/18/2021 Telephone Gastroenterology - [address] [place] [phone] Christopher Perera PA-C APPOINTMENT Social History Tobacco [...] on filedocumented in this encounter Care Teams Income Tax Advisor Relationship Specialty Start Date End Date Nasrin Bettencourt MD PCP - General Internal Medicine 06/08/21 03/28/22 Jacklyn Guzman MD [address] [place] [address] PCP - General Internal Medicine 03/29/22 documented as of this encounter
--- OUTSIDE RECORDS SUMMARY | 2025-06-01 18:37 | XMS_ITS | Encounter Summary ---
Author Organization [facility] Address [address] [place] [address] Care Team Providers Care Director Trial Name Role Phone Nasrin Bettencourt MD Primary Care Provider Jacklyn López MD Primary Care Prov ider Reason for Visit * Reason Comments E-prescribe Rx Request Encounter Details Date Type Department Care Team Description 12/19/2021 [facility] General Surgery [address] [place] [phone] Blaine Perdomo MD [address] [place] [address] [address] [place] [address] E-prescribe Rx Request Social History Tobacco Use Types Packs/Day Years [...] on filedocumented in this encounter Care Teams Director Trial Relationship Specialty Start Date End Date Nasrin Bettencourt MD PCP - General Internal Medicine 06/08/21 03/28/22 Jacklyn Guzman MD [address] [place] [address] PCP - General Internal Medicine 03/29/22 documented as of this encounter
--- OUTSIDE RECORDS SUMMARY | 2025-06-01 18:37 | XMS_ITS | Encounter Summary ---
Author Organization [facility] Address [address] [place] [address] Care Team Providers Care Tour Conductor Name Role Phone Ashok Brumfield MD Primary Care Provider Sabine Carrillo Primary Care Provider Damon Fraser DO Primary Care Provider Nasrin Palmer MD Primary Care Provider Jacklyn López MD Primary Care Prov ider Reason for Visit * Reason Onset Date Comments dizziness 08/09/2019 Encounter Details Date Type Department Care Team Description 08/09/2019 Telephone Medicine/Pediatrics - [address] [phone] Ashok Brumfield MD dizziness Social History Tobacco [...] patienthad spinal tap done last [facility] at [facility] in January timeframe, re: pse (pseudo) [...] vehicle accident? NO If yes, gather 3rd republican insurance information Date of accident/Injury: How long has patient had these symptoms?: weeks PCP: Sabine Grant [facility] / Plan: [facility] / Product Type: MEDICAID RISK documented in this encounter Plan of Treatment Not on file documented as of this encounter Visit Diagnoses Not on filedocumented in this encounter Care Teams Tour Conductor Relationship Specialty Start Date End Date Ashok Brumfield MD PCP - General Internal Medicine 09/14/19 12/04/20 Sabine Grant PCP - General Family Practice 07/28/19 09/13/19 Damon Harmon DO PCP - General Internal Medicine 12/05/20 Nasrin Bettencourt MD PCP - General Internal Medicine 06/08/21 03/28/22 Jacklyn Guzman MD [address] [place] [address] PCP - General Internal Medicine 03/29/22 documented as of this encounter
--- OUTSIDE RECORDS SUMMARY | 2025-06-01 18:37 | XMS_ITS | Encounter Summary ---
Author Organization [facility] Address [address] [place] [address] Care Team Providers Care Asbestos Microscopist Name Role Phone Nasrin Bettencourt MD Primary Care Provider Jacklyn López MD Primary Care Prov ider Reason for Visit * Reason Onset Date Comments Bariatric Weight Check 10/10/2021 Encounter Details Date Type Department Care Team Description 10/10/2021 Telephone General Surgery - [place] [address] [phone] Sherron Gaitan PA-C [address] [phone] Bariatric Weight Check Social History Tobacco Use Types Packs/Day Years [...] or suspected to have Coronavirus / COVID-19? Unable to assess 10/11/2021 7:38 AM EDT documented as of this encounter Miscellaneous Notes * Telephone Encounter - [address] - 10/10/2021 3:35 PM EDT Patient weight is 238.08 documented in this encounter Plan of Treatment Not on file documented as of this encounter Visit Diagnoses Not on filedocumented in this encounter Care Teams Asbestos Microscopist Relationship Specialty Start Date End Date Nasrin Bettencourt MD PCP - General Internal Medicine 06/08/21 03/28/22 Jacklyn Guzman MD [address] [place] [address] PCP - General Internal Medicine 03/29/22 documented as of this encounter
--- OUTSIDE RECORDS SUMMARY | 2025-06-01 18:37 | XMS_ITS | Encounter Summary ---
Author Organization [facility] Address [address] [place] [address] Care Team Providers Care Apprentice Technician Name Role Phone Nasrin Bettencourt MD Primary Care Provider Jacklyn López MD Primary Care Prov ider Encounter Details Date Type Department Care Team Description 07/30/2021 Orders Only Medical Records [address] [place] [address] Belgica Turner MD [address] [place] [address] Social History Tobacco Use Types Packs/Day Years [...] PM EST documented as of this encounter Progress Notes * Alexandr Turner MD - 08/11/2021 3:04 PM EST Dear CharisseThe esophagus biopsies which were taken during the time of your endoscopy show evidence of chronic inflammation associated with acid reflux disease.You will need to take a proton pump inhibitor agent such as omeprazole on a regular basis (daily) indefinitely. Please also avoid eating late at night, avoiding alcohol especially before sleep, staying away from excessive amounts of carbonated drinks or caffeinated products.I would like to personally thank you for allowing us to take careof you. Please don't hesitate to call us for any questions or concerns.Regards,Gema Turner MDBoard Certified Gastroenterology and Internal MedicineTransplant HepatologyStewart [facility] documented in this encounter Plan of Treatment Not on file documented as of this encounter Procedures Procedure Name Priority Date/Time Associated Diagnosis Comments OUTSIDE PATHOLOGY Routine 07/25/2021 documented in this encounter Results * OUTSIDE PATHOLOGY (07/25/2021) Belgica Turner MD OUTSIDE LAB documented in this encounter Visit Diagnoses Not on filedocumented in this encounter Care Teams Apprentice Technician Relationship Specialty Start Date End Date Nasrin Bettencourt MD PCP - General Internal Medicine 06/08/21 03/28/22 Jacklyn Guzman MD [address] [place] [address] PCP - General Internal Medicine 03/29/22 documented as of this encounter
--- OUTSIDE RECORDS SUMMARY | 2025-06-01 18:37 | XMS_ITS | Encounter Summary ---
Author Organization [facility] Address [address] [place] [address] Care Team Providers Care School Nurse Name Role Phone Rylee Obando MD Primary Care Provider Paige Sevilla MD Primary Care Provider UnaAshok Rivera MD Primary Care Provider UnaSabine Muniz Primary Care Provider Damon Fraser DO Primary Care Provider Nasrin Palmer MD Primary Care Provider Unavai Jacklyn Ng MD Primary Care Prov ider Encounter Details Date Type Department Care Team Description 01/08/2017 Orders Only DESIZING PAD OPERATOR - [place] [address] [place] [phone] Cinthia Abarca, CNM [address] [place] [phone] 8 weeks gestation of Social [...] incidental documented in this encounter Care Teams School Nurse Relationship Specialty Start Date End Date Rylee [...] 06/08/21 03/28/22 Yomaira Rodriguez, Jacklyn Chaparro MD [address] [place] [id number] PCP - General Internal Medicine 03/29/22 documented as of this encounter
[2025-06-02 13:40] LABS: Bacterial Vaginosis PCR NEGATIVE (Negative); Candida Group PCR NOT DETECTED (Not Detect); Candida glab krusei PCR NOT DETECTED (Not Detect); Trichomonas vaginalis PCR NOT DETECTED (Not Detect)
[2025-06-02 14:32] LABS: CT PCR NOT DETECTED (Not Detect.); NG PCR NOT DETECTED (Not Detect.)
== END 2025-06-01 13:54 | disposition home or self-care (01) ==
LOC: HO.LNP 13:53
PROVIDERS: PCP Physician Assistant; Visit Provider Advanced Practice Midwife
DX: Z01.419 Encounter for gynecological examination (general) (routine) without abnormal findings (principal); Z11.51 Encounter for screening for human papillomavirus (HPV); E28.2 Polycystic ovarian syndrome; Z20.2 Contact with and (suspected) exposure to infections with a predominantly sexual mode of transmission; R10.20 Pelvic and perineal pain unspecified side; Z79.899 Other long term (current) drug therapy; Z98.51 Tubal ligation status
CPT/HCPCS: 81515; 87491; 87591; 87626; 88175

== ENCOUNTER 2025-06-01 13:53 | Outpatient (AMB) | payer BC, SELFPAY ==
--- NOTE | 2025-06-01 14:09 | A.OFFVIS_ITS ---
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 Normal hx. 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 She has had irregular periods all her life she has a diagnosis of PCOS. She lost a lot of weight after gastric surgery she is working to keep it off and eat healthy and take care of herself. She thought she had a Pap smear last year but on questioning she is not entirely certain that it was a Pap smear so we will do 1 today with the testing. She had her tubes tied. Because of the irregular periods she has been on every hormonal manipulation possible and has had compli cations or problems with all of them including severe headaches and arm symptoms that were concerning for the possibility of a stroke so she was stopped off of the those pills and she had some complications with IUDs and other methods as well [facility] Medical History Pseudotumor cerebri syndrome Iron deficiency PCOS (polycystic ovarian syndrome) Surgical History Hx of tubal ligation H/O gastric sleeve (~2021) H/O hand surgery (~2012) Family History Father CVA (cerebral vascular accident) Diabetes Mother Asthma Other Hypertension Social History Housing: House Alcohol intake: current Alcohol intake frequency: holidays/special occasions only Patient Tobacco Use Status: Never used Tobacco e-Cigarette/Vaping Use: Never Used Second Hand Smoke Exposure: No service: No Current occupational status: employed 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 - [employer] Current occupational exposures/hazards: No Cognitive needs: No Hearing needs: No Vision needs: Yes Female Reproductive History Menstrual Age of Menarche: 11 Duration of menses: 6-7 days Date of last menstrual period: 05/19/25 control method: permanent sterilization Total pregnancies: 3 Full term: 3 History of abnormal pap smear: No Physical Exam Vital Signs: Last Vital Signs BP 98/60 06/01/25 14:16 BMI result Body Mass Index 27.1 Const General: healthy appearing, comfortable, no acute distress, well developed and alert Nutritional Appearance: average body habitus Orientation/consciousness: patient oriented x3 Limitations: no limitations HEENT Head: Yes normocephalic Neck Neck: Yes normal visual inspection Chest Chest palpation & inspection: normal inspection of the chest Breast/axilla inspection: normal inspection of the breasts and normal inspection of the axillae Breast/axilla palpation: normal palpation of the breasts and normal palpation of the axillae Resp Effort & Inspection: normal respiratory effort GI Inspection: Yes normal to inspection, No Abdominal wall edema and No distended Palpation (GI): Soft to palpation and nontender Other: Normal city maintenance manager exam external exam within normal limits cervix multiparous pink smooth healthy appearing with normal healthy appearing mucus cervix long close thick mobile nontender uterus mobile nontender adnexa nontender. I was not able to recreate any of the pain that she was recounting in her story but she still was be interested in an ultrasound. See the ultrasound order and notation about the pain for details. General: Yes bladder normal to palpation External Female Exam: normal external appearance and normal appearance of the urethra Speculum Exam - Vagina: normal appearance of the vagina, normal palpation and normal vaginal discharge Speculum Exam - Cervix: normal appearance of the cervix, normal palpation and nontender Bimanual exam- vagina & uterus: normal bimanual exam, normal palpation, uterine size normal, bladder normal to palpation, consistency normal, normal palpation, uterine mobility normal, uterine shape normal, No Cervical tenderness present, non-tender and no cervical motion tenderness Bimanual Exam- Adnexa, other: normal adnexae, no masses, normal and No adnexal tenderness Neuro General: patient oriented x3 Assessment & Plan Assessment & Plan (1) PCOS (polycystic ovarian syndrome): Code(s): E28.2 - Polycystic ovarian syndrome Category: Medical (2) Well woman exam with routine gynecological exam: Code(s): Z01.419 - Encounter for gynecological examination (general) (routine) without abnormal findings Category: Medical (3) Cervical cancer screening: Code(s): Z12.4 - Encounter for screening for malignant neoplasm of cervix Category: Medical (4) Pelvic pain: Comment: Just before, and at start of menses, right-sided. Ultrasound ordered to get before herperiod Code(s): R10.2 - Pelvic and perineal pain Category: Medical Plan Reviewed her past history because of her PCOS in her regular periods and difficulties she has tried every single method and has had negative side effects to every single 1 in particular of note she had very bad headache and right- sided arm symptoms and a stroke was feared and so combination OCPs were stopped and she had full evaluation she is getting care for what turned out to be a neck concern however combination OCPs are still out of the question. She had gastric bypass surgery and has lost about 100 lb she continues to exercise and eat well. She says her periods are irregular still and typically she gets a very bad pain right before her period And at the start of her period. And it gets really bad and runs down her leg she would like an ultrasound to check for that she was t old that some point she had ovarian cysts I did review with her that it very well might relate to ovulation and formation of a cyst in that process and then it gets better when her period comes but we shall see she is going to aim to schedule her ultrasound before her period, then we will have a follow-up visit after and review the results and look at her calendar with it. -----Discussed in this visit the following: healthy balanced diet, regular and consistent exercise, getting recommended health screens, doing the best she can for her particular health concerns, kegel exercises, pap smear screening and followup recommendations, mammography screening and SBE, normal changes in cycles in her life stage--- . Orders: Orders HPV High risk Today Z01.419 - Encounter for gynecological examination (general) (routine) without abnormal findings Bacterial Vaginosis Panel Today R10.2 - Pelvic and perineal pain CT NG by PCR Vag/Cerv Today R10.2 - Pelvic and perineal pain Pap Smear Today Z01.419 - Encounter for gynecological examination (general) (routine) without abnormal findings Coding Level of Care Code New Pt Prev Care 18-39yr([id number] Diagnoses PCOS (polycystic ovarian syndrome) E28.2 Well woman exam with routine gynecological exam Z01.419 Cervical cancer screening Z12.4 Pelvic pain R10.2
[2025-06-01 14:16] VITALS: BP 98/60; BMI 27.1
--- OUTSIDE RECORDS SUMMARY | 2025-06-01 17:05 | XMS_ITS | Encounter Summary ---
Author Organization [facility] Address [address] [place] [phone] Phone Care Team Providers Care Manager Of Regulatory Affairs Name Role Phone Ashok Brumfield MD Primary Care Provider Encounter Details Date Type Department Care Team ([facility] st Contact Info) Description 10/05/2019 Procedure Pass [facility] [address] [place] [address] Social History Tobacco Use Types Packs/Day Years [...] on filedocumented in this encounter Care Teams Manager Of Regulatory Affairs Relationship Specialty Start Date End Date Ashok Brumfield MD PCP - General 09/28/19 documented as of this encounter Additional Source Comments The information contained in this document represents components of the legal health record. It is not the complete legal health record.[facility]
--- OUTSIDE RECORDS SUMMARY | 2025-06-01 17:05 | XMS_ITS | Clinical Summary ---
Author Organization [address] Address [address] [place] [phone] Phone Care Team Providers Care Lacer And Tier Name Role Phone Jacklyn Momin MD [...] unspecified 01/07/2022 Overview (05/12/2024): Lissett Verma PhD [place] grade A esophagitis 08/28/2021 Abnormal uterine bleeding 12/09/2020 PCOS (polycystic ovarian syndrome) 11/17/2020 Overview (05/12/2024): Last Assessment & Plan: She was counseled re: implications of PCOS including irregular ovulation which can lead to endometrial hyperplasia or malignancy, and also subfertility or infertility. I also reviewed detention risks of cardiovascular disease and diabetes. I [...] saw swelling of optic nerve, rec see occupational health specialist, optic nerve swelling. Head CT then obtained, extra fluid in ventricles. Then saw neuro, rec lumbar puncture, opening pressure 24.5. [place] better for awhile after lumbar puncture. Started on diamox even prior to lumbar puncture, on med since head CT summer 2018. Being followed by neurology in [place] yearly and [facility] in [place] yearly - all normal with decreased eye [...] 2011 Left PROCEDURE: HISTORICAL HAND SURGERY; COMMENT: [facility] TUBAL LIGATION 2017 PROCEDURE: HISTORICAL TUBAL LIGATION BARIATRIC SURGERY 04/19/2022 PROCEDURE: VT LAPS GSTRC RSTRICTIV PX LONGITUDINAL GASTRECTOMY Medical History Medical History Date Comments Anemia 2017 DX:Anemia Pseudotumor cerebri DX:Pseudotum or cerebri; COMMENT: dx 2018. Eating disorder, unspecified 01/07/2022 DX: Eating disorder, unspecified; COMMENT: Lissett Verma PhD Abnormal uterine bleeding 12/09/2020 DX:Abn ormal uterine bleeding [place] grade A esophagitis 08/28/2021 DX:[place] grade A esophagitis PCOS (polycystic ovarian syndrome) 11/17/2020 DX:PCOS (polycystic ovarian syndrome) Vitamin D deficiency 08/07/2020 DX:Vitamin D deficiency Morbid obesity with BMI of 4 0.0-44.9, adult ([facility] V24, [facility] V28) 08/18/2019 DX:Morbid obesity wit h BMI of 40.0-44.9, adult ([facility]) History of sleeve gastrectomy 04/22/2022 DX :History [...] Results * Cervical Cancer Screening: HPV (10/23/2021) [facility] Cervical Cancer Screening: HPV negative, abstracted [facility] Provider HEALTH MAINTENANCE Final Result * Lipid panel (08/05/2020) [facility] LDL/HDL Ratio 4 0 - 4 Triglycerides 95 0 - 150 mg/dL Cholesterol 166 0 - 200 mg/dL HDL 44 >=40 mg/dL LDL Cholesterol 103 0 - 103 mg/dL Blood Venous blood specimen / Unknown [facility] Provider LAB BLOOD ORDERABLES Jessica l Result * HIV Screening (12/16/2016) [facility] HIV Screening abstracted us Historical Provider HEALTH MAINTENANCE Final Result * Hepatitis C Screening (12/16/2016) Hepatitis C Screening abstracted Historical Provider HEALTH MAINTENANCE Final Result from Last 3 Months or Most Recently Relevant to Health Maintenance Insurance [facility] Care Teams Lacer And Tier Relationship Specialty Start Date End Date Jacklyn Momin MD [address] [place] [phone] PCP - General Internal Medicine 03/29/22
--- OUTSIDE RECORDS SUMMARY | 2025-06-01 17:05 | XMS_ITS | Encounter Summary ---
Author Organization [facility] Address [address] [place] [address] Phone Care Team Providers Care Certified Vehicle Fire Investigator Name Role Phone Emma Saini MD Primary Care Provider Unavailabl e Encounter Details Date Type Department Care Team (Late st Contact Info) Description 12/06/2009 Documentation [facility] [place] [address] [place] [address] Family Medicine, Physician [address] [place], [place] [id number] Social History Tobacco Use Types Packs/Day Years [...] on filedocumented in this encounter Care Teams Certified Vehicle Fire Investigator Relationship Specialty Start Date End Date Emma Saini MD PCP - General 03/07/17 documented as of this encounter
--- OUTSIDE RECORDS SUMMARY | 2025-06-01 17:05 | XMS_ITS | Clinical Summary ---
Author Organization [facility] Address [address] [place] [address] Phone Care Team Providers Care Carpentry Instructor Name Role Phone Ashok Brumfield MD Primary [...] topic Medical Devices Not on file Insurance [facility] NON NSPG PCP JOSE [place] [facility]CARE [address] [facility] [place] NON NSPG PCP SILVER CLARITY CONNECTORCARE WELLSENSE NON NSPG PCP SILVER CLARITY CONNECTORCARE WELLSENSE NON NSPG PCP SILVER CLARITY CONNECTORCARE WELLSENSE NON NSPG PCP SILVER CLARITY CONNECTORCARE [place] NON NSPG PCP SILVER CLARITY CONNECTORCARE WELLSENSE NON NSPG PCP SILVER CLARITY CONNECTORCARE [place] NON NSPG PCP SILVER CLARITY CONNECTORCARE Care Teams Carpentry Instructor Relationship Specialty Start Date End Date Ashok Brumfield MD PCP - General 09/28/19 Additional Source Comments The information contained in this document represents components of the legal health record. It is not the complete legal health record.[facility]
--- OUTSIDE RECORDS SUMMARY | 2025-06-01 17:05 | XMS_ITS | Clinical Summary ---
Author Organization [facility] Address [address] [place] [address] Phone Care Team Providers Care Apple Thinner Name Role Phone Emma Saini MD Primary [...] complete this topic Procedures * Due to [place] [employer] law, this organization might not be sharing sensitive test results. Procedure Name Priority Date/Time Associated Diagnosis Comments CHLAMYDIA AND GONORRHEA, AMPLIFIED Routine 11/09/2012 1:10 PM EDT from Last 3 Months or Most Recently Relevant to Health Maintenance Results * Due to [place] [employer] law, this organization might not be sharing sensitive test results. * Chlamydia and Gonorrhoea, Amplified (11/09/2012 1:10 PM EDT) URINE GC AMP PROBE NEGATIVE [facility] Comment: NO NEISSERIA GONORRHOEAE RNA DETECTED IN THIS PATIENT'S SAMPLE. (REFERENCE RANGE/NORMAL VALUE: NOT DETECTED) NOTE: THIS TEST USES PRIMING POWDER PREMIX BLENDER-MEDIATED AMPLIFICATION METHOD TO DETECT rRNA FROM C.TRACHOMATIS [...] OF INFECTION. URINE CHLAMYDIA AMP PROBE NEGATIVE [facility] Comment: NO CHLAMYDIA TRACHOMATIS RNA DETECTED IN THIS PATIENT'S SAMPLE. (REFERENCE RANGE/NORMAL VALUE: NOT DETECTED) 11/09/2012 1:10 PM EDT Narrative [facility] - 11/09/2012 1:10 PM EDT URINE CHLAMYDIA GC AMP PROBE us Chelo Carranza MD LAB MICROBIOLOGY - GENERAL ORDER ANDERSON Final Result [facility] [address] [place] [address], from Last 3 Months or Most Recently Relevant to Health Maintenance Care Teams Apple Thinner Relationship Specialty Start Date End Date Emma Saini MD PCP - General 03/07/17
--- OUTSIDE RECORDS SUMMARY | 2025-06-01 17:05 | XMS_ITS | Encounter Summary ---
Author Organization [facility] Address [address] [place] [address] Phone Care Team Providers Care Salon Manager Name Role Phone Emma Saini MD Primary Care Provider Unavailabl e Encounter Details Date Type Department Care Team (Late st Contact Info) Description 12/06/2009 Documentation [facility] [place] [address] [place] [address] Family Medicine, Physician [address] [place], [place] [phone] Social History Tobacco Use Types Packs/Day Years [...] on filedocumented in this encounter Care Teams Salon Manager Relationship Specialty Start Date End Date Emma Saini MD PCP - General 03/07/17 documented as of this encounter
--- OUTSIDE RECORDS SUMMARY | 2025-06-01 17:05 | XMS_ITS | Encounter Summary ---
Author Organization [facility] Address [address] [place] [address] Phone Care Team Providers Care Wrecker Driver Name Role Phone Emma Saini MD Primary Care Provider Unavailabl e Encounter Details Date Type Department Care Team (Late st Contact Info) Description 03/13/2017 Conversion Encounter [facility] - [address] [address] Social History Tobacco Use Types Packs/Day Years [...] on filedocumented in this encounter Care Teams Wrecker Driver Relationship Specialty Start Date End Date Emma Saini MD PCP - General 03/07/17 documented as of this encounter
== END 2025-06-02 09:33 | disposition home or self-care (01) ==
LOC: HO.HWSM 13:53
PROVIDERS: PCP Physician Assistant; Visit Provider Advanced Practice Midwife
DX: Z01.419 Encounter for gynecological examination (general) (routine) without abnormal findings (principal); E28.2 Polycystic ovarian syndrome; R10.21 Pelvic and perineal pain right side
CPT/HCPCS: 99385; 99459

== ENCOUNTER 2025-06-01 15:49 | Outpatient (REF) | payer BC, SELFPAY | END 2025-06-01 15:50 | disposition home or self-care (01) | LOC: HO.LAB 15:49 | PROVIDERS: Visit Provider Advanced Practice Midwife | DX: Z13.89 Encounter for screening for other disorder (principal) ==

== ENCOUNTER 2025-06-21 07:48 | Outpatient (AMB) | payer BC, SELFPAY ==
--- NOTE | 2025-06-21 07:53 | MHC.OFFVIS ---
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 Patient was referred by PCP 05/16/25. At today's visit she says her symptoms have been on going since March of 2025. Prolonged ambulation, stairs, bending the knee all give her a dull and achy pain in the lateral and medial aspect of the right knee. She takes acetaminophen for pain will mild relief. She uses a brace for stability of the knee due to weakness. She reports she is going to [employer] next month and will be doing quite a bit of walking. The patient states that she may have aggravated her knee while running to an emergency while at school. Allergies No Known Allergies Allergy (Verified 06/21/25 07:55) Medication List - Last Reconciled 06/21/25 by Aris Serrano MD ferrous sulfate 325 mg PO BID 60 days gabapentin 300 mg PO BEDTIME 30 days ibuprofen 200 mg PO Q6H PRN PFSH Medical History Pseudotumor cerebri syndrome Iron deficiency PCOS (polycystic ovarian syndrome) Surgical History Hx of tubal ligation H/O gastric sleeve (~2021) H/O hand surgery (~2012) Family History Father CVA (cerebral vascular accident) Diabetes Mother Asthma Other Hypertension Social History Housing: House Alcohol intake: current Alcohol intake frequency: holidays/special occasions only Patient Tobacco Use Status: Never used Tobacco e-Cigarette/Vaping Use: Never Used Second Hand Smoke Exposure: No service: No Current occupational status: employed 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 - [employer] Current occupational exposures/hazards: No Cognitive needs: No Hearing needs: No Vision needs: Yes Female Reproductive History Menstrual Age of Menarche: 11 Physical Exam Vital Signs: BMI result Body Mass Index 27.5 Const Other: Well-nourished well-developed very friendly female awake alert and oriented x3 in no acute distress Extrem Other: Right knee examination shows a minimal effusion, minimal crepitus with range of motion, tenderness along her medial joint line, positive Wendy's test, no instability Office Procedures AMB Joint Injection/Aspiration Joint Injection/Aspiration Primary Site: Right Knee Prep: site was prepped using aseptic technique Injected: 40 mg of, DepoMedrol, with 3 mL of and 1% plain Lidocaine Procedure: The patient tolerated the procedure well Coding 85413 - Large joint Procedure code (CPT) selection complete Results Reviewed Results Reviewed: X-rays of the patient's right knee show no acute bony abnormalities, no significant joint space narrowing Assessment & Plan Assessment & Plan (1) Right knee pain: Code(s): M25.561 - Pain in right knee Category: Medical Qualifiers: Chronicity: acute Qualified Code(s): M25.561 - Pain in right knee Plan Ms. Fernandez presents with right knee pain due to early degenerative joint disease as well as possible medial meniscus tearing. The risks and benefits of a right knee cortisone injection were discussed at length with the patient. The patient wished to proceed. She tolerated the injection well. She will continue with her activity modifications. She will contact me prior to her follow-up appointment in 3 months should any questions or concerns arise. Feel free to call me at any time should questions regarding her orthopedic management arise. I spent 22 minutes in reviewing the patient's records and imaging studies, seeing the patient and documenting in the medical record. Orders: Orders AMB Joint Injection/Aspiration Today M25.561 - Pain in right knee Coding Level of Care Code New Pt Level 3 (19840) Complex visit Add On G2211 Diagnoses Acute pain of right knee M25.561 Chronicity: acute CPT Codes Coding - Large joint: 92863 - Large joint ([id number])
--- OUTSIDE RECORDS SUMMARY | 2025-06-21 07:53 | XMS_ITS | Encounter Summary ---
Author Organization [facility] Address [address] [facility] [address] [place] [phone] Phone Care Team Providers Care Surgical Consultant Name Role Phone Ashok Brumfield MD Primary Care Provider Encounter Details Date Type Department Care Team ([facility] st Contact Info) Description 10/05/2019 Procedure Pass [facility] [address] [place] [address] Social History Tobacco Use Types Packs/Day Years [...] on filedocumented in this encounter Care Teams Surgical Consultant Relationship Specialty Start Date End Date Ashok Brumfield MD PCP - General 09/28/19 documented as of this encounter Additional Source Comments The information contained in this document represents components of the legal health record. It is not the complete legal health record.[facility]
--- OUTSIDE RECORDS SUMMARY | 2025-06-21 07:53 | XMS_ITS | Clinical Summary ---
Author Organization [facility] Address [address] [facility] [address] [place] [address] Phone Care Team Providers Care Machinist Linotype Name Role Phone Ashok Brumfield MD Primary [...] topic Medical Devices Not on file Insurance [facility] NON NSPG PCP JOSE MARIA [place] CONNECTORCARE [facility] NON NSPG PCP SILVER CLARITY CONNECTORCARE [place] NON NSPG PCP SILVER CLARITY CONNECTORCARE [place] NON NSPG PCP SILVER CLARITY CONNECTORCARE [place] NON NSPG PCP [place]ARE [place] PCP SILVER CLARITY CONNECTORCARE [place] NON NSPG PCP SILVER CLARITY CONNECTORCARE [place] NON NSPG PCP SILVER CLARITY CONNECTORCARE Care Teams Machinist Linotype Relationship Specialty Start Date End Date Ashok Brumfield MD PCP - General 09/28/19 Additional Source Comments The information contained in this document represents components of the legal health record. It is not the complete legal health record.[facility]
--- OUTSIDE RECORDS SUMMARY | 2025-06-21 07:53 | XMS_ITS | Clinical Summary ---
Author Organization [facility] Address [address] [place] [address] Phone Care Team Providers Care Property Damage Claims Adjustor Name Role Phone Emma Saini MD Primary [...] complete this topic Procedures * Due to [place] law, this organization might not be sharing sensitive test results. Procedure Name Priority Date/Time Associated Diagnosis Comments CHLAMYDIA AND GONORRHEA, AMPLIFIED Routine 11/09/2012 1:10 PM EDT from Last 3 Months or Most Recently Relevant to Health Maintenance Results * Due to [place] law, this organization might not be sharing sensitive test results. * Chlamydia and Gonorrhoea, Amplified (11/09/2012 1:10 PM EDT) URINE GC AMP PROBE NEGATIVE [facility] Comment: NO NEISSERIA GONORRHOEAE RNA DETECTED IN THIS PATIENT'S SAMPLE. (REFERENCE RANGE/NORMAL VALUE: NOT DETECTED) NOTE: THIS TEST USES HAZARDOUS SUBSTANCES SCIENTIST-MEDIATED AMPLIFICATION METHOD TO DETECT rRNA FROM C.TRACHOMATIS [...] OF INFECTION. URINE CHLAMYDIA AMP PROBE NEGATIVE [facility] Comment: NO CHLAMYDIA TRACHOMATIS RNA DETECTED IN THIS PATIENT'S SAMPLE. (REFERENCE RANGE/NORMAL VALUE: NOT DETECTED) 11/09/2012 1:10 PM EDT Narrative [facility] - 11/09/2012 1:10 PM EDT URINE CHLAMYDIA GC AMP PROBE us Chelo Carranza MD LAB MICROBIOLOGY - GENERAL ORDER ANDERSON Final Result [facility] [address] [place] [address], from Last 3 Months or Most Recently Relevant to Health Maintenance Care Teams Property Damage Claims Adjustor Relationship Specialty Start Date End Date Emma Saini MD PCP - General 03/07/17
--- OUTSIDE RECORDS SUMMARY | 2025-06-21 07:53 | XMS_ITS | Encounter Summary ---
Author Organization [facility] Address [address] [place] [address] Phone Care Team Providers Care Distribution Engineer Name Role Phone Emma Saini MD Primary Care Provider Unavailabl e Encounter Details Date Type Department Care Team (Late st Contact Info) Description 03/13/2017 Conversion Encounter [facility] - [address] [address] Social History Tobacco Use Types Packs/Day Years [...] on filedocumented in this encounter Care Teams Distribution Engineer Relationship Specialty Start Date End Date Emma Saini MD PCP - General 03/07/17 documented as of this encounter
--- OUTSIDE RECORDS SUMMARY | 2025-06-21 07:53 | XMS_ITS | Clinical Summary ---
Author Organization [address] Address [address] [place] [phone] Phone Care Team Providers Care Service Developer Name Role Phone Jacklyn Momin MD Primary [...] unspecified 01/07/2022 Overview (05/12/2024): Lissett Verma PhD Shannon grade A esophagitis 08/28/2021 Abnormal uterine bleeding 12/09/2020 PCOS (polycystic ovarian syndrome) 11/17/2020 Overview (05/12/2024): Last Assessment & Plan: She was counseled re: implications of PCOS including irregular ovulation which can lead to endometrial hyperplasia or malignancy, and also subfertility or infertility. I also reviewed long term care social worker risks of cardiovascular disease and diabetes. I [...] saw swelling of optic nerve, rec see eye technician, optic nerve swelling. Head CT then obtained, extra fluid in ventricles. Then saw neuro, rec lumbar puncture, opening pressure 24.5. [place] better for awhile after lumbar puncture. Started on diamox even prior to lumbar puncture, on med since head CT summer 2018. Being followed by neurology in [place] yearly and [facility] in [place] yearly - all normal with decreased eye [...] 2011 Left PROCEDURE: HISTORICAL HAND SURGERY; COMMENT: [facility] TUBAL LIGATION 2017 PROCEDURE: HISTORICAL TUBAL LIGATION BARIATRIC SURGERY 04/19/2022 PROCEDURE: ND LAPS GSTRC RSTRICTIV PX LONGITUDINAL GASTRECTOMY Medical History Medical History Date Comments Anemia 2017 DX:Anemia Pseudotumor cerebri DX:Pseudotum or cerebri; COMMENT: dx 2018. Eating disorder, unspecified 01/07/2022 DX: Eating disorder, unspecified; COMMENT: Lissett Verma PhD Abnormal uterine bleeding 12/09/2020 DX:Abn ormal uterine bleeding Shannon grade A esophagitis 08/28/2021 DX:Shannon grade A esophagitis PCOS (polycystic ovarian syndrome) 11/17/2020 DX:PCOS (polycystic ovarian syndrome) Vitamin D deficiency 08/07/2020 DX:Vitamin D deficiency Morbid obesity with BMI of 4 0.0-44.9, adult ([facility] V24, [facility] V28) 08/18/2019 DX:Morbid obesity wit h BMI of 40.0-44.9, adult ([facility]) History of sleeve gastrectomy 04/22/2022 DX [...] Results * Cervical Cancer Screening: HPV (10/23/2021) [facility] Cervical Cancer Screening: HPV negative, abstracted [place] [facility] Provider HEALTH MAINTENANCE Final Result * Lipid panel (08/05/2020) [facility] LDL/HDL Ratio 4 0 - 4 Triglycerides 95 0 - 150 mg/dL Cholesterol 166 0 - 200 mg/dL HDL 44 >=40 mg/dL LDL Cholesterol 103 0 - 103 mg/dL Blood Venous blood specimen / Unknown [place] [facility] Provider LAB BLOOD ORDERABLES Jessica l Result * HIV Screening (12/16/2016) [facility] HIV Screening abstracted us Historical Provider HEALTH MAINTENANCE Final Result * Hepatitis C Screening (12/16/2016) Hepatitis C Screening abstracted Historical Provider HEALTH MAINTENANCE Final Result from Last 3 Months or Most Recently Relevant to Health Maintenance Insurance [facility] Care Teams Service Developer Relationship Specialty Start Date End Date Jacklyn Momin MD [address] [place] [phone] PCP - General Internal Medicine 03/29/22
--- OUTSIDE RECORDS SUMMARY | 2025-06-21 07:53 | XMS_ITS | Encounter Summary ---
Author Organization [facility] Address [address] [place] [address] Phone Care Team Providers Care Consumer Analyst Name Role Phone Emma Saini MD Primary Care Provider Unavailabl e Encounter Details Date Type Department Care Team (Late st Contact Info) Description 12/06/2009 Documentation [facility] [place] [address] [place] [address] Family Medicine, Physician [address] [place], [place] [id number] Social History Tobacco Use Types Packs/Day Years [...] on filedocumented in this encounter Care Teams Consumer Analyst Relationship Specialty Start Date End Date Emma Saini MD PCP - General 03/07/17 documented as of this encounter
--- OUTSIDE RECORDS SUMMARY | 2025-06-21 07:53 | XMS_ITS | Encounter Summary ---
Author Organization [facility] Address [address] [place] [address] Phone Care Team Providers Care Rag Shredder Name Role Phone Emma Saini MD Primary Care Provider Unavailabl e Encounter Details Date Type Department Care Team (Late st Contact Info) Description 12/06/2009 Documentation [facility] [place] [address] [place] [address] Family Medicine, Physician [address] [place], [place] [phone] Social History Tobacco Use Types Packs/Day Years [...] on filedocumented in this encounter Care Teams Rag Shredder Relationship Specialty Start Date End Date Emma Saini MD PCP - General 03/07/17 documented as of this encounter
[2025-06-21 07:55] VITALS: BMI 27.5
== END 2025-06-21 08:20 | disposition home or self-care (01) ==
LOC: HO.HOS 07:49
PROVIDERS: PCP Physician Assistant; Visit Provider Orthopaedic Surgery
DX: M25.561 Pain in right knee (principal)
CPT/HCPCS: 20610; 99203

== ENCOUNTER → 2025-06-21 07:48 | Outpatient (BNVA) | payer BC, SELFPAY | PROVIDERS: PCP Physician Assistant; Visit Provider Orthopaedic Surgery | DX: M25.561 Pain in right knee (principal) | CPT/HCPCS: 20610; J1010; J2003 ==

== ENCOUNTER 2025-07-01 14:21 | Outpatient (REF) | payer BC, SELFPAY ==
--- NOTE | 2025-07-01 14:26 | EMG_ITS ---
Chief complaint: Right-sided neck pain and arm pain, denies numbness Reason for referral: Evaluate for radiculopathy Referred by: Traci Dejesus NP Procedure done: Right upper extremity NCS/EMG Precautions and/or limitations: None The limb temperature was monitored continuously and remained between 32-36 degrees C during the performance of the NCS. Nerve Conduction Studies Anti Sensory Summary Table ?Stim Site NR Onset (ms) Norm Onset (ms) Peak (ms) Norm Peak (ms) O-P Amp (?V) Norm O-P Amp Site1 Site2 Delta-0 (ms) Dist (cm) Micheal (m/s) Norm Micheal (m/s) Right Median Anti Sensory (2nd Digit) Wrist ? 2.3 2.9 <3.6 56.4 >10 Wrist 2nd Digit 2.3 14.0 61 Right Radial Anti Sensory (Thumb) Forearm ? 1.6 2.1 <3.1 31.8 Forearm Thumb 1.6 0.0 Right Ulnar Anti Sensory (5th Digit) Wrist ? 2.4 3.3 <3.7 56.0 >15.0 Wrist 5th Digit 2.4 14.0 58 Motor Summary Table ?Stim Site NR Onset (ms) Norm Onset (ms) O-P Amp (mV) Norm O-P Amp iAmp (mV) Amp (1st) (%) Site1 Site2 Delta-0 (ms) Dist (cm) Micheal (m/s) Norm Micheal (m/s) Right Median Motor (Abd Poll Brev) Wrist ? 2.9 <3.9 11.9 >4.5 13.6 100.0 Elbow Wrist 3.7 20.5 55 >45 Elbow ? 6.6 12.2 14.4 102.5 Right Ulnar Motor (Abd Dig Minimi) Wrist ? 2.8 <3.0 12.7 >5 14.5 100.0 B Elbow Wrist 3.5 20.5 59 >45 B Elbow ? 6.3 9.7 11.0 76.4 A Elbow B Elbow 1.1 10.0 91 >45 A Elbow ? 7.4 9.7 11.1 76.4 EMG ?Side Muscle Nerve Root Ins Act Fibs Psw Amp Dur Poly Recrt Int Pat Comment Right 1stDorInt Ulnar C8-T1 Nml Nml Nml Nml Nml 0 Nml Complete Right FlexCarRad Median C6-7 Nml Nml Nml Nml Nml 0 Nml Complete Right Biceps Musculocut C5-6 Nml Nml Nml Nml Nml 0 Nml Complete Right Triceps Radial C6-7-8 Nml Nml Nml Nml Nml 0 Nml Complete Right Deltoid Axillary C5-6 Nml Nml Nml Nml Nml 0 Nml Complete FINDINGS: All motor and sensory nerves tested showed normal latencies, amplitudes and conduction velocities. Concentric needle EMG was performed in selected muscles of the right upper extremity. Study did not reveal signs of electric abnormalities as shown in the table above. IMPRESSION: 1. This is a normal study. 2. There is no electrodiagnostic evidence for median neuropathy, ulnar neuropathy, brachial plexopathy, or cervical radiculopathy. Thank you for your kind referral. Bianca Live MD, REX Board Certified, [place] Board of Physical Medicine and Rehabilitation (ABPMR) Board Certified, [place] Board of Electrodiagnostic Medicine (ABEM) CODIN [id number] x 1 extremity MTDD
--- OUTSIDE RECORDS SUMMARY | 2025-07-01 18:30 | XMS_ITS | Clinical Summary ---
Author Organization [facility] Address [address] [place] [address] Phone Care Team Providers Care Ornamental Brick Installer Name Role Phone Ashok Brumfield MD Primary [...] topic Medical Devices Not on file Insurance [facility] NON NSPG PCP JOSE MARIA [place] CONNECTORCARE [facility] [place] NON NSPG PCP SILVER CLARITY CONNECTORCARE WELLSENSE NON NSPG PCP SILVER [employer]ARITY CONNECTORCARE WELLSENSE NON NSPG PCP SILVER CLARITY CONNECTORCARE WELL[place]ENSE NON NSPG PCP SILVER CLARITY CONNECTORCARE [place] NON NSPG PCP SILVER CLARITY CONNECTORCARE WELL[place]ENSE NON NSPG PCP SILVER CLARITY CONNECTORCARE [place] NON NSPG PCP SILVER CLARITY CONNECTORCARE Care Teams Ornamental Brick Installer Relationship Specialty Start Date End Date Ashok Brumfield MD PCP - General 09/28/19 Additional Source Comments The information contained in this document represents components of the legal health record. It is not the complete legal health record.[facility]
--- OUTSIDE RECORDS SUMMARY | 2025-07-01 18:30 | XMS_ITS | Encounter Summary ---
Author Organization [facility] Address [address] [place] [address] Phone Care Team Providers Care Control Inspector Name Role Phone Emma Saini MD Primary Care Provider Unavailabl e Encounter Details Date Type Department Care Team (Late st Contact Info) Description 12/06/2009 Documentation [facility] [place] [address] [place] [address] Family Medicine, Physician [address] [place], [place] [id number] Social History Tobacco Use Types Packs/Day Years [...] on filedocumented in this encounter Care Teams Control Inspector Relationship Specialty Start Date End Date Emma Saini MD PCP - General 03/07/17 documented as of this encounter
--- OUTSIDE RECORDS SUMMARY | 2025-07-01 18:30 | XMS_ITS | Clinical Summary ---
Author Organization [facility] Address [address] [place] [address] Phone Care Team Providers Care Agricultural Economist Name Role Phone Emma Saini MD Primary [...] complete this topic Procedures * Due to [place] [employer] law, this organization might not be sharing sensitive test results. Procedure Name Priority Date/Time Associated Diagnosis Comments CHLAMYDIA AND GONORRHEA, AMPLIFIED Routine 11/09/2012 1:10 PM EDT from Last 3 Months or Most Recently Relevant to Health Maintenance Results * Due to [place] [employer] law, this organization might not be sharing sensitive test results. * Chlamydia and Gonorrhoea, Amplified (11/09/2012 1:10 PM EDT) URINE GC AMP PROBE NEGATIVE [facility] Comment: NO NEISSERIA GONORRHOEAE RNA DETECTED IN THIS PATIENT'S SAMPLE. (REFERENCE RANGE/NORMAL VALUE: NOT DETECTED) NOTE: THIS TEST USES TELEGRAPH OPERATOR-MEDIATED AMPLIFICATION METHOD TO DETECT rRNA FROM C.TRACHOMATIS [...] INFECTION. URINE CHLAMYDIA AMP PROBE NEGATIVE [facility] Comment: NO CHLAMYDIA TRACHOMATIS RNA DETECTED IN THIS PATIENT'S SAMPLE. (REFERENCE RANGE/NORMAL VALUE: NOT DETECTED) 11/09/2012 1:10 PM EDT Narrative [facility] - 11/09/2012 1:10 PM EDT URINE CHLAMYDIA GC AMP PROBE us Chelo Carranza MD LAB MICROBIOLOGY - GENERAL ORDER ANDERSON Final Result [facility] [address] [place] [address], from Last 3 Months or Most Recently Relevant to Health Maintenance Care Teams Agricultural Economist Relationship Specialty Start Date End Date Emma Saini MD PCP - General 03/07/17
--- OUTSIDE RECORDS SUMMARY | 2025-07-01 18:30 | XMS_ITS | Encounter Summary ---
Author Organization [facility] Address [address] [place] [address] Phone Care Team Providers Care U.[place]. Representative Name Role Phone Emma Saini MD Primary Care Provider Unavailabl e Encounter Details Date Type Department Care Team (Late st Contact Info) Description 03/13/2017 Conversion Encounter [facility] - [address] [address] Social History Tobacco Use Types Packs/Day Years [...] on filedocumented in this encounter Care Teams U.[place]. Representative Relationship Specialty Start Date End Date Emma Saini MD PCP - General 03/07/17 documented as of this encounter
--- OUTSIDE RECORDS SUMMARY | 2025-07-01 18:30 | XMS_ITS | Encounter Summary ---
Author Organization [facility] Address [address] [place] [id number] Phone Care Team Providers Care Steward/Stewardess Room Name Role Phone Ashok Brumfield MD Primary Care Provider Encounter Details Date Type Department Care Team ([facility] st Contact Info) Description 10/05/2019 Procedure Pass [facility] [address] [place] [address] Social History Tobacco Use Types Packs/Day Years [...] on filedocumented in this encounter Care Teams Steward/Stewardess Room Relationship Specialty Start Date End Date Ashok Brumfield MD PCP - General 09/28/19 documented as of this encounter Additional Source Comments The information contained in this document represents components of the legal health record. It is not the complete legal health record.[facility]
--- OUTSIDE RECORDS SUMMARY | 2025-07-01 18:30 | XMS_ITS | Clinical Summary ---
Author Organization [address] Address [address] [place] [phone] Phone Care Team Providers Care Pattern Vault Clerk Name Role Phone Jacklyn Momin MD Primary [...] unspecified 01/07/2022 Overview (05/12/2024): Lissett Verma PhD [place] grade A esophagitis 08/28/2021 Abnormal uterine bleeding 12/09/2020 PCOS (polycystic ovarian syndrome) 11/17/2020 Overview (05/12/2024): Last Assessment & Plan: She was counseled re: implications of PCOS including irregular ovulation which can lead to endometrial hyperplasia or malignancy, and also subfertility or infertility. I also reviewed fdc risks of cardiovascular disease and diabetes. I [...] saw swelling of optic nerve, rec see dispute resolution specialist, optic nerve swelling. Head CT then obtained, extra fluid in ventricles. Then saw neuro, rec lumbar puncture, opening pressure 24.5. [place] better for awhile after lumbar puncture. Started on diamox even prior to lumbar puncture, on med since head CT summer 2018. Being followed by neurology in [place] yearly and [facility] in [place] yearly - all normal with decreased eye [...] PROCEDURE: HISTORICAL HAND SURGERY; COMMENT: [facility] TUBAL LIGATION 2017 PROCEDURE: HISTORICAL TUBAL LIGATION BARIATRIC SURGERY 04/19/2022 PROCEDURE: DC LAPS GSTRC RSTRICTIV PX LONGITUDINAL GASTRECTOMY Medical History Medical History Date Comments Anemia 2017 DX:Anemia Pseudotumor cerebri DX:Pseudotum or cerebri; COMMENT: dx 2018. Eating disorder, unspecified 01/07/2022 DX: Eating disorder, unspecified; COMMENT: Lissett Verma PhD Abnormal uterine bleeding 12/09/2020 DX:Abn ormal uterine bleeding [place] grade A esophagitis 08/28/2021 DX:[place] grade A esophagitis PCOS (polycystic ovarian syndrome) 11/17/2020 DX:PCOS (polycystic ovarian syndrome) Vitamin D deficiency 08/07/2020 DX:Vitamin D deficiency Morbid obesity with BMI of 4 0.0-44.9, adult ([facility] V24, [facility] V28) 08/18/2019 DX:Morbid obesity wit h BMI of 40.0-44.9, adult ([facility]) History of sleeve gastrectomy 04/22/2022 DX :History [...] Results * Cervical Cancer Screening: HPV (10/23/2021) [facility] Cervical Cancer Screening: HPV negative, abstracted [facility] Provider HEALTH MAINTENANCE Final Result * Lipid panel (08/05/2020) [facility] LDL/HDL Ratio 4 0 - 4 Triglycerides 95 0 - 150 mg/dL Cholesterol 166 0 - 200 mg/dL HDL 44 >=40 mg/dL LDL Cholesterol 103 0 - 103 mg/dL Blood Venous blood specimen / Unknown [facility] Provider LAB BLOOD ORDERABLES Jessica l Result * HIV Screening (12/16/2016) [facility] HIV Screening abstracted us Historical Provider HEALTH MAINTENANCE Final Result * Hepatitis C Screening (12/16/2016) Hepatitis C Screening abstracted Historical Provider HEALTH MAINTENANCE Final Result from Last 3 Months or Most Recently Relevant to Health Maintenance Insurance [facility] Care Teams Pattern Vault Clerk Relationship Specialty Start Date End Date Jacklyn Momin MD [address] [place] [phone] PCP - General Internal Medicine 03/29/22
--- OUTSIDE RECORDS SUMMARY | 2025-07-01 18:30 | XMS_ITS | Encounter Summary ---
Author Organization [facility] Address [address] [place] [address] Phone Care Team Providers Care Equity Manager Name Role Phone Emma Saini MD Primary Care Provider Unavailabl e Encounter Details Date Type Department Care Team (Late st Contact Info) Description 12/06/2009 Documentation [facility] [place] [address] [place] [address] Family Medicine, Physician [address] [place], [place] [phone] Social History Tobacco Use Types Packs/Day Years [...] on filedocumented in this encounter Care Teams Equity Manager Relationship Specialty Start Date End Date Emma Saini MD PCP - General 03/07/17 documented as of this encounter
== END 2025-07-01 14:22 | disposition home or self-care (01) ==
LOC: HO.NEURO 14:21
PROVIDERS: PCP Physician Assistant; Visit Provider Nurse Practitioner Family
DX: M54.12 Radiculopathy, cervical region (principal); R20.2 Paresthesia of skin; M79.601 Pain in right arm
CPT/HCPCS: 95886; 95909

== ENCOUNTER → 2025-07-01 14:26 | Outpatient (BNV) | payer BC, SELFPAY | PROVIDERS: PCP Physician Assistant; Visit Provider Physical Medicine & Rehabilitation | DX: M54.12 Radiculopathy, cervical region (principal); M79.601 Pain in right arm | CPT/HCPCS: 95886; 95909 ==